=== PATIENT | male | born 1955 | race Caucasian/White ===

== ENCOUNTER 2021-12-25 14:31 | Outpatient (AMB) | payer OTHER, SELFPAY ==
--- NOTE | 2021-12-25 14:31 | A.OFFVIS_ITS ---
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 He is a patient of Dr. Andujar. He seen for the following urologic conditions - prostate cancer Recent diagnosis prostate cancer Recommend MRI with repeat PSA Could also obtain genetics Prostate cancer - favorable intermediate, low volume, clinically localized 06/2021 Diagnosed [address] Mccormack in [place] Initial PSA 12 Biopsy to calls out of 12 each less than 20% with [place] 3 + 3 Total size 50 g PFSH Medical History Elevated cholesterol HTN (hypertension) Surgical History Hx of hand surgery Hx of right inguinal hernia repair Social History Patient Tobacco Use Status: Never used Tobacco Review of Systems Const Denies chills and Denies fever(s) Card Reports no additional complaints and Denies syncope Resp Denies cough GI Denies abdominal pain and Denies heartburn Reports as per HPI and Denies change in libido Neuro Denies syncope Psych Denies change in libido Endo Denies change in libido Physical Exam Vital Signs: Last Vital Signs Pulse 79 12/25/21 14:43 Resp 18 12/25/21 14:43 BP 150/80 H 12/25/21 14:43 BMI result Body Mass Index 27.2 Const General: cooperative, healthy appearing, comfortable and no acute distress Orientation/consciousness: patient oriented x3 HEENT Face and sinus: Yes normal facial exam Mouth: moist mucous membranes Neck Neck: Yes normal visual inspection, Yes full ROM and Yes trachea midline Chest Chest palpation & inspection: normal inspection of the chest Resp Effort & Inspection: normal respiratory effort, able to speak in complete sentences and no respiratory distress GI Inspection: Yes normal to inspection Back/Spine/Pelvis Cervical Spine: normal cervical lordosis Thoracic/Lumbar Spine: thoracic and lumbar spine normal to inspection Skin General skin exam: no rashes or lesions noted Neuro General: patient oriented x3, gait normal, tone normal and moves all extremities Extrem General: Yes normal to inspection and Yes capillary refill normal Assessment & Plan Assessment & Plan (1) Prostate cancer: Comment: June 2021 biopsy 2 of 12 cores positive less than 20% [place] 3+3 - PSA 12 Code(s): C61 - Malignant neoplasm of prostate Plan Prostate MRI Prolaris genetics Orders: Orders Creatinine 12/25/21 R39.15 - Urgency of urination, C61 - Malignant neoplasm of prostate MR pelvis wo/w con 12/25/21 C61 - Malignant neoplasm of prostate Blood Urea Nitrogen 12/25/21 R39.15 - Urgency of urination, C61 - Malignant neoplasm of prostate Patient Instructions: Imaging studies, laboratory and physical exam results were discussed and reviewed in detail. No major barriers to patient understanding were identified. An opportunity to ask questions regarding the treatment plan was provided. All questions were answered. The patient expressed understanding and agreement with the above treatment plan. The patient is aware they should contact our office by phone for worsening of their current condition or the appearance of new urologic symptoms. Compliance is encouraged with any medications and followup testing that is ordered. It is a privilege to participate in the urologic care of your patient. If you have any questions or concerns regarding treatment for the above conditions, or other urologic issues, please do not hesitate to contact me. The office telephone contact is [phone]. This note is constructed using voice recognition software. While every effort has been made to ensure accuracy rn urology errors may have been included. Yours sincerely, Dr Easton Chance MD, [place] [facility] - Urology Providers of Expert, Compassionate Care for the Genitourinary System Coding Level of Care Code New Pt Level 4 (24718) Diagnoses Prostate cancer C61
[2021-12-25 14:43] VITALS: BP 150/80; PULSE 79; RESP 18; BMI 27.2
== END 2021-12-25 15:14 | disposition home or self-care (01) ==
LOC: HO.HUSH 14:31
PROVIDERS: Visit Provider Urology
DX: C61 Malignant neoplasm of prostate (principal)
CPT/HCPCS: 99499

== ENCOUNTER → 2022-05-11 14:31 | Outpatient (BNVA) | payer MEDICARE, SELFPAY | PROVIDERS: Visit Provider Urology | DX: C61 Malignant neoplasm of prostate (principal) | CPT/HCPCS: Q3014 ==

== ENCOUNTER → 2022-09-08 13:32 | Outpatient (BNVA) | payer MEDICARE, SELFPAY | PROVIDERS: PCP Family Medicine; Visit Provider Urology | DX: C61 Malignant neoplasm of prostate (principal) | CPT/HCPCS: Q3014 ==

== ENCOUNTER 2022-11-08 10:21 | Day surgery (SDC) | payer MEDICARE, SELFPAY ==
[2022-11-04 11:14] VITALS: BMI 27.2
--- NOTE | 2022-11-08 08:13 | HO.ANESPROP2 ---
[facility] Active Problems Active Problems: All Active Problems (Updated 11/04/22 @ 11:09 by Lachelle Moran RN) Prostate cancer (Acute) Past Medical History Medical History (Updated 11/08/22 @ 11:14 by Farzana Choi, RADHA) Elevated cholesterol HTN (hypertension) Family History Family history of problems with anesthesia: No Surgical History Surgical History (Updated 11/08/22 @ 10:48 by Farzana Choi, RADHA) Hx of hand surgery Hx of right inguinal hernia repair History of Problems with Anesthesia: No Social History Social History Patient Tobacco Use Status: Never used Tobacco Use of substances other than those prescribed or required for medical reasons: No Advance Directives Information Provided: Yes Advance Directives on File: No Meds Allergies Allergy/AdvReac Type Severity Reaction Status Date / Time midazolam [From Versed] AdvReac Nausea Verified 11/08/22 10:48 morphine AdvReac Nausea and Verified 11/08/22 10:49 Vomiting Exam Exam Date and Time: November 08, 2022 0813 Height,Weight and Vital Signs: Height 5 ft 7 in Weight 78.925 kg Airway Mallampati Class: II (top 8 caps implant) TM Dist: >3cm Neck ROM: Full Heart: rrr Lungs: cta Assessment and Plan Assessment Anesthesia Assessment: Anesthesia Plan Discussed and Chart Reviewed Final Anesthetic Review Family History of Problems with Anesthesia: No History of Problems with Anesthesia: No NPO: Yes ASA Class: II Final Preanesthetic Review: No Changes in Pt Med Stat, Meds/Allgs Chart Reviewed and Consent Obtained/Reviewed Patient Risk: Intermediate Procedure Risk: Intermediate Anesthetic Plan Anesthetic Plan: GA Disposition: Standard PACU
[2022-11-08 10:55] VITALS: BP 164/102; PULSE 59; RESP 15; TEMP 36.8; O2SAT 99
[2022-11-08] MEDS: Lactated Ringers 1,000 ML 50 ML IVCONT (11:14)
--- NOTE | 2022-11-08 12:51 | MHC.SHP ---
Pre-Procedural Eval Section A Date of Service: 11/08/22 The patient is an INPATIENT: No Changes since office visit: No Cold of Flu in the past 2 weeks, No New Medical Problems, No Changes in Medication and No Patient answered all questions The History & Physical has been completed within 30 days and I have reviewed it.: Yes Section B Chief Complaint: prostate cancer Relevant Social History: None Present Medications: see Short Stay Collaborative assessment Medical History: No relevant PMH History of Previous Operations: No relevant previous surgery Allergies: Allergies Allergy/AdvReac Type Severity Reaction Status Date / Time midazolam [From Versed] AdvReac Nausea Verified 11/08/22 10:48 morphine AdvReac Nausea and Verified 11/08/22 10:49 Vomiting Review of Systems Sugical H&P ROS: Negative: Constitution, Cardiovascular, Respiratory, Neurological, Psychiatric, Hem-Onc, Allergic/Immunologic, Gastrointestinal, Genitourinary, Musculoskeletal, Integumentary, Endocrine and Eyes/Ears/Nose/Throat Exam Surgical H&P Exam: Normal: HEENT, Normal: Heart, Normal: Lungs, Normal: Extremities, Normal: Abdomen, Normal: Skin and Normal: Neurological Plan Diagnosis/Plan: Unchanged (prostate cancer targeted therapy) I have reviewed the history and physical and performed a pertinent physical examination on my patient. No changes have occurred unless specified. Time Spent With Patient Time: Total time managing care of this patient today ____ minutes.
[2022-11-08 14:00] VITALS: BP 135/84; PULSE 66; RESP 16; TEMP 36.2; O2SAT 96
--- NOTE | 2022-11-08 14:01 | W.PM.OPN ---
Operative Note Operative Note Date of Service: 11/08/22 Narrative: Preoperative diagnosis: Prostate Cancer Postoperative diagnosis: Prostate Cancer Procedure: 1. transrectal ultrasound measurement of prostate 2. transrectal ultrasound-guided pudendal nerve block 3. MRI-US fusion image registration performed 3. transperineal ultrasound-guided prostate biopsy 17 core including targets Surgeon: Dr. Easton Chance Anesthetic: Sedation plus local Indications for procedure: Prostate Cancer Procedure: After informed consent was verified, the patient was brought into the procedure area. Patient identity confirmed. Perioperative antibiotics confirmed. Safety pause time out performed. Anesthesia performed per protocol Ultrasound probe was placed per rectum Focalis software and hardware platform used An ultrasound-guided pudendal nerve block was performed using 10 cc of 1% lidocaine. 8 cc was placed at the base and 2 cc of the apex. Perineal injection of local. Ultrasound placement was made with grid calibration for height and prostate diameter in both the transverse and longitudinal planes. Once grid calibration was confirmed ultrasound acquisition was performed in the transverse fashion. Three dimensional ultrasound model was created. The planned needle targeting based on prior acquisition of MRI imaging was overlaid on the ultrasound images and targets confirmed through ultrasound review. Based on pre -planning evaluation 17 targets had been identified. These included 1 target Pirads 3 and 1 target pirads 4 identified lesion/s. He tolerated the procedure well. Was transferred to stable condition in the PACU. Printed instructions regarding antibiotic use and common side effects such as low-grade temperature, potential infection and bleeding were given Pathology: 17 cores prostate biopsy CPT 28143 Modifier 22 for complexity of planning and procedure execution
[2022-11-08 14:05] VITALS: BP 121/53; PULSE 63; RESP 16; O2SAT 98
[2022-11-08 14:10] VITALS: BP 133/88; PULSE 61; RESP 16; O2SAT 99
[2022-11-08 14:15] VITALS: BP 139/93; PULSE 65; RESP 16; O2SAT 99
[2022-11-08 14:30] VITALS: BP 128/86; PULSE 60; RESP 16; TEMP 36.5; O2SAT 99
== END 2022-11-08 15:22 | disposition home or self-care (01) ==
PROVIDERS: PCP Family Medicine; Visit Provider Urology
PROC: (CPT 55700; principal; 2022-11-08 12:10)
DX: C61 Malignant neoplasm of prostate (principal); R97.20 Elevated prostate specific antigen [PSA]; I10 Essential (primary) hypertension; E78.00 Pure hypercholesterolemia, unspecified; Z79.899 Other long term (current) drug therapy; Z88.8 Allergy status to other drugs, medicaments and biological substances
CPT/HCPCS: 55700; 88305; 88344; J1956; J2405; J3010

== ENCOUNTER → 2022-11-16 12:56 | Outpatient (BNVA) | payer MEDICARE, SELFPAY | PROVIDERS: PCP Family Medicine; Visit Provider Urology ==

== ENCOUNTER → 2022-11-24 12:49 | Outpatient (BNVA) | payer MEDICARE, SELFPAY | PROVIDERS: PCP Family Medicine; Visit Provider Urology | DX: C61 Malignant neoplasm of prostate (principal) | CPT/HCPCS: Q3014 ==

== ENCOUNTER 2023-08-25 13:46 | Outpatient (AMB) | payer MEDICARE, SELFPAY ==
--- NOTE | 2023-08-25 13:48 | A.OFFVIS_ITS ---
Intake Intake Visit Reasons: follow up per Dr. Chance Intake Note: Patient is Present for Telephone Follow Up For Urology Med: Finasteride Antibiotic Allergy: None Blood Thinner: None Allergies midazolam [From Versed] Adverse Reaction (Verified 08/25/23 13:50) Nausea morphine Adverse Reaction (Verified 08/25/23 13:50) Nausea and Vomiting HPI HPI Comments History of Present Illness Details Sergio is very pleasant male. He is a patient of Dr. Andujar. He seen for the following urologic conditions - prostate cancer Telemedicine Evaluation 15 min Consultation [employer] Video attempted Discussed options for therapy including robotic prostatectomy, external beam radiation, targeted focal cryotherapy Is active and values urinary control on current erectile function This was why he initially chose surveillance in 2021 Would like to move ahead with focal therapy Risks and benefits were discussed including continence and erectile issues 11/09 Biopsy Histologic type: Adenocarcinoma; acinar type ? [place] score: 3+4=7 (c 3.5, D 4.0; c 4.0) - % of pattern 4: 15% of the tumor 3+3=6 (d 3.5; d 3.0) Tumor quantitation: Number cores positive: 5 Total number of cores: 19 % of tissue involved: 10% of all tissue examined Prostate cancer - favorable intermediate, low volume, clinically localized 06/2021 Diagnosed June [address] Mccormack in [place] Initial PSA 12 PSA - 04/10 19, 09/09 14 07/11 Biopsy Biopsy 2 out of 12 cores each less than 20% with [place] 3 + 3 Imaging - 12/09 MRI left lateral peripheral zone wedge shaped PI-RADS 3 Total size 50 g Prolaris 01/08 - Borderline active surveillance/single therapy PFSH Medical History Elevated cholesterol HTN (hypertension) Surgical History Hx of right inguinal hernia repair Hx of hand surgery Social History Patient Tobacco Use Status: Never used Tobacco Review of Systems Const All systems reviewed & are unremarkable except as noted in HPI and below Reports no additional complaints Resp Reports no additional complaints GI Reports no additional complaints Reports as per HPI Musc Reports no additional complaints Physical Exam Telemedicine evaluation Appropriate responses Regular breathing rate and rhythm HEENT Head: Yes normal to inspection Ears: hearing grossly normal bilaterally Eyes General: appearance normal, both eyes and all related structures Neck Neck: Yes normal visual inspection Chest Chest palpation & inspection: normal inspection of the chest Resp Effort & Inspection: normal respiratory effort and able to speak in complete sentences Assessment & Plan Assessment & Plan (1) Prostate cancer: Comment: June 2021 biopsy 2 of 12 cores positive less than 20% [place] 3+3 - PSA 12 Code(s): C61 - Malignant neoplasm of prostate Plan Risks, benefits and alternatives to therapy were discussed. These include but are not limited to infection, bleeding, damage to local organs and tissues, need for further interventions. Anesthetic risks regarding cardiac arrhythmia, blood clots, and potential mortality were discussed. The patient understands the typical recovery time and the outpatient nature of the procedure. After consideration of these risks the patient gives full informed consent and they wish to move ahead with the procedure. Focal Cryotherapy Prostate Orders: Orders PSA,Total (Free>4and<10) Today C61 - Malignant neoplasm of prostate Patient Instructions: Imaging studies, laboratory and physical exam results were discussed and reviewed in detail. No major barriers to patient understanding were identified. An opportunity to ask questions regarding the treatment plan was provided. All questions were answered. The patient expressed understanding and agreement with the above treatment plan. The patient is aware they should contact our office by phone for worsening of their current condition or the appearance of new urologic symptoms. Compliance is encouraged with any medications and followup testing that is ordered. It is a privilege to participate in the urologic care of your patient. If you have any questions or concerns regarding treatment for the above conditions, or other urologic issues, please do not hesitate to contact me. The office telephone contact is [phone]. This note is constructed using voice recognition software. While every effort has been made to ensure accuracy mirror finishing machine operator errors may have been included. Yours sincerely, Dr Easton Chance MD, [place] [facility] - Urology Providers of Expert, Compassionate Care for the Genitourinary System Telehealth Telehealth Location of provider rendering services: practice address Location of patient: address on file Patient Identification confirmed using: Name, : Yes Telehealth method: video Patient verbally consented to treatment: Yes Patient verbally consented to billing insurance company: Yes Patient informed of any privacy concerns related to visit: Yes Coding Level of Care Code Tele Est Pt Level 4 (15266) Diagnoses Prostate cancer C61
== END 2023-08-25 14:35 | disposition home or self-care (01) ==
LOC: HO.HUSH 13:46
PROVIDERS: PCP Family Medicine; Visit Provider Urology
DX: C61 Malignant neoplasm of prostate (principal)
CPT/HCPCS: 99213

== ENCOUNTER → 2023-08-25 13:46 | Outpatient (BNVA) | payer MEDICARE, SELFPAY | PROVIDERS: PCP Family Medicine; Visit Provider Urology ==

== ENCOUNTER 2023-09-30 11:55 | Outpatient (AMB) | payer MEDICARE, SELFPAY ==
--- NOTE | 2023-09-30 11:56 | MHC.OFFVIS ---
Intake Intake Visit Reasons: PSA results(set) Allergies midazolam [From Versed] Adverse Reaction (Verified 08/25/23 13:50) Nausea morphine Adverse Reaction (Verified 08/25/23 13:50) Nausea and Vomiting HPI HPI Comments History of Present Illness Details Sergio is very pleasant male. He is a patient of Dr. Andujar. He seen for the following urologic conditions - prostate cancer Telemedicine Evaluation 15 min Consultation [employer] Video Discussed options for therapy including robotic prostatectomy, external beam radiation, targeted focal cryotherapy Is active and values urinary control on current erectile function This was why he initially chose surveillance in 2021 Would like to move ahead with focal therapy Risks and benefits were discussed including continence and erectile issues PSA had fallen with finasteride - had side effects so came off medication 11/09 Biopsy Histologic type: Adenocarcinoma; acinar type ? [place] score: 3+4=7 (c 3.5, D 4.0; c 4.0) - % of pattern 4: 15% of the tumor 3+3=6 (d 3.5; d 3.0) Tumor quantitation: Number cores positive: 5 Total number of cores: 19 % of tissue involved: 10% of all tissue examined Prostate cancer - favorable intermediate, low volume, clinically localized 06/2021 Diagnosed June [address] Mccormack in [place] Initial PSA 12 PSA - 04/10 19, 09/09 14 07/11 Biopsy Biopsy 2 out of 12 cores each less than 20% with [place] 3 + 3 Imaging - 12/09 MRI left lateral peripheral zone wedge shaped PI-RADS 3 Total size 50 g Prolaris 01/08 - Borderline active surveillance/single therapy PFSH Medical History Elevated cholesterol HTN (hypertension) Surgical History Hx of right inguinal hernia repair Hx of hand surgery Social History Patient Tobacco Use Status: Never used Tobacco Assessment & Plan Assessment & Plan (1) Prostate cancer: Comment: June 2021 biopsy 2 of 12 cores positive less than 20% [place] 3+3 - PSA 12 Code(s): C61 - Malignant neoplasm of prostate Plan Risks, benefits and alternatives to therapy were discussed. These include but are not limited to infection, bleeding, damage to local organs and tissues, need for further interventions. Anesthetic risks regarding cardiac arrhythmia, blood clots, and potential mortality were discussed. The patient understands the typical recovery time and the outpatient nature of the procedure. After consideration of these risks the patient gives full informed consent and they wish to move ahead with the procedure. Focal Prostate Cryotherapy Patient Instructions: Imaging studies, laboratory and physical exam results were discussed and reviewed in detail. No major barriers to patient understanding were identified. An opportunity to ask questions regarding the treatment plan was provided. All questions were answered. The patient expressed understanding and agreement with the above treatment plan. The patient is aware they should contact our office by phone for worsening of their current condition or the appearance of new urologic symptoms. Compliance is encouraged with any medications and followup testing that is ordered. It is a privilege to participate in the urologic care of your patient. If you have any questions or concerns regarding treatment for the above conditions, or other urologic issues, please do not hesitate to contact me. The office telephone contact is [phone]. This note is constructed using voice recognition software. While every effort has been made to ensure accuracy medical registrar errors may have been included. Yours sincerely, Dr Easton Chance MD, [place] [facility] - Urology Providers of Expert, Compassionate Care for the Genitourinary System Telehealth Telehealth Location of provider rendering services: practice address Location of patient: address on file Patient Identification confirmed using: Name, : Yes Telehealth method: video Patient verbally consented to treatment: Yes Patient verbally consented to billing insurance company: Yes Patient informed of any privacy concerns related to visit: Yes Coding Level of Care Code Tele Est Pt Level 4 (06363) Diagnoses Prostate cancer C61
== END 2023-09-30 12:38 | disposition home or self-care (01) ==
LOC: HO.HUSH 11:55
PROVIDERS: PCP Family Medicine; Visit Provider Urology
DX: C61 Malignant neoplasm of prostate (principal)
CPT/HCPCS: 99214

== ENCOUNTER → 2023-09-30 11:55 | Outpatient (BNVA) | payer MEDICARE, SELFPAY | PROVIDERS: PCP Family Medicine; Visit Provider Urology ==

== ENCOUNTER 2024-01-05 12:10 | Outpatient (AMB) | payer MEDICARE, SELFPAY ==
--- NOTE | 2024-01-05 11:57 | MHC.OFFVIS ---
Intake Visit Reasons: H&P Prostate Cryo Intake Note: Patient is Present for H&P PROSTATE CRYO Urology Med: Finasteride Antibiotic Allergy: None Blood Thinner: None Personnel And Payroll Technician Required: No Allergies midazolam [From Versed] Adverse Reaction (Verified 01/05/24 11:58) Nausea morphine Adverse Reaction (Verified 01/05/24 11:58) Nausea and Vomiting Medication List - Last Reconciled 01/05/24 by Easton Chance MD finasteride 5 mg PO DAILY 90 days HPI Comments Details: Sergio is very pleasant male. He is a patient of Dr. Andujar. He seen for the following urologic conditions - prostate cancer Telemedicine Evaluation 15 min Consultation [employer] Video Planning for cryotherapy Discussed options for therapy including robotic prostatectomy, external beam radiation, targeted focal cryotherapy Is active and values urinary control on current erectile function This was why he initially chose surveillance in 2021 Would like to move ahead with focal therapy Risks and benefits were discussed including continence and erectile issues PSA had fallen with finasteride - had side effects so came off medication 11/09 Biopsy Histologic type: Adenocarcinoma; acinar type ? [place] score: 3+4=7 (c 3.5, D 4.0; c 4.0) - % of pattern 4: 15% of the tumor 3+3=6 (d 3.5; d 3.0) Tumor quantitation: Number cores positive: 5 Total number of cores: 19 % of tissue involved: 10% of all tissue examined Prostate cancer - favorable intermediate, low volume, clinically localized 06/2021 Diagnosed June [address] Mccormack in [place] Initial PSA 12 PSA - 04/10 19, 09/09 14 07/11 Biopsy Biopsy 2 out of 12 cores each less than 20% with [place] 3 + 3 Imaging - 12/09 MRI left lateral peripheral zone wedge shaped PI-RADS 3 Total size 50 g Prolaris 01/08 - Borderline active surveillance/single therapy PFSH Medical History Elevated cholesterol HTN (hypertension) Surgical History Hx of right inguinal hernia repair Hx of hand surgery Social History Patient Tobacco Use Status: Never used Tobacco Review of Systems Const All systems reviewed & are unremarkable except as noted in HPI and below Reports no additional complaints Resp Reports no additional complaints GI Reports no additional complaints Reports as per HPI Musc Reports no additional complaints Physical Exam Telemedicine evaluation Appropriate responses Regular breathing rate and rhythm HEENT Head: Yes normal to inspection Ears: hearing grossly normal bilaterally Eyes General: appearance normal, both eyes and all related structures Neck Neck: Yes normal visual inspection Chest Chest palpation & inspection: normal inspection of the chest Resp Effort & Inspection: normal respiratory effort and able to speak in complete sentences Telehealth Telehealth Location of provider rendering services: practice address Location of patient: address on file Patient Identification confirmed using: Name, : Yes Telehealth method: voice only Patient verbally consented to treatment: Yes Patient verbally consented to billing insurance company: Yes Patient informed of any privacy concerns related to visit: Yes Assessment & Plan Assessment & Plan (1) Prostate cancer: Comment: June 2021 biopsy 2 of 12 cores positive less than 20% [place] 3+3 - PSA 12 Code(s): C61 - Malignant neoplasm of prostate Category: Medical Plan Risks, benefits and alternatives to therapy were discussed. These include but are not limited to infection, bleeding, damage to local organs and tissues, need for further interventions. Anesthetic risks regarding cardiac arrhythmia, blood clots, and potential mortality were discussed. The patient understands the typical recovery time and the outpatient nature of the procedure. After consideration of these risks the patient gives full informed consent and they wish to move ahead with the procedure. Cryotherapy prostate Orders: Orders MR pelvis wo/w con 01/05/24 C61 - Malignant neoplasm of prostate Patient Instructions: Imaging studies, laboratory and physical exam results were discussed and reviewed in detail. No major barriers to patient understanding were identified. An opportunity to ask questions regarding the treatment plan was provided. All questions were answered. The patient expressed understanding and agreement with the above treatment plan. The patient is aware they should contact our office by phone for worsening of their current condition or the appearance of new urologic symptoms. Compliance is encouraged with any medications and followup testing that is ordered. It is a privilege to participate in the urologic care of your patient. If you have any questions or concerns regarding treatment for the above conditions, or other urologic issues, please do not hesitate to contact me. The office telephone contact is [phone]. This note is constructed using voice recognition software. While every effort has been made to ensure accuracy senior process engineer errors may have been included. Yours sincerely, Dr Easton Chance MD, [place] [facility] - Urology Providers of Expert, Compassionate Care for the Genitourinary System Coding Level of Care Code Tele Est Pt Level 3 (08285) Diagnoses Prostate cancer C61
== END 2024-01-05 14:00 | disposition home or self-care (01) ==
LOC: HO.HUSH 12:10
PROVIDERS: PCP Family Medicine; Visit Provider Urology
DX: C61 Malignant neoplasm of prostate (principal)
CPT/HCPCS: 99442

== ENCOUNTER → 2024-01-05 12:10 | Outpatient (BNVA) | payer MEDICARE, SELFPAY | PROVIDERS: PCP Family Medicine; Visit Provider Urology ==

== ENCOUNTER 2024-03-29 14:42 | Outpatient (AMB) | payer MEDICARE, SELFPAY ==
--- NOTE | 2024-03-29 14:43 | A.OFFVIS_ITS ---
Intake Visit Reasons: Discuss plan after surgical denial Intake Note: Patient is present for Telephone to discuss plan of care after Surgical denial Allergies midazolam [From Versed] Adverse Reaction (Verified 01/05/24 11:58) Nausea morphine Adverse Reaction (Verified 01/05/24 11:58) Nausea and Vomiting Medication List - Last Reconciled 03/29/24 by Easton Chance MD finasteride 5 mg PO DAILY 90 days HPI Comments Details: Sergio is very pleasant male. He is a patient of Dr. Andujar. He seen for the following urologic conditions - prostate cancer Telemedicine Evaluation 15 min Consultation [employer] Syed Video Targeted focal therapy denied He is interested in potential paying [id number] Was also interested in brachytherapy Will put in referral for brachytherapy assessment MRI 02/10 1.3cm PiRADS 4 lesion left lateral zone - similar to 2021 PSA had fallen with finasteride - had side effects so came off medication 11/09 Biopsy Histologic type: Adenocarcinoma; acinar type ? [place] score: 3+4=7 (c 3.5, D 4.0; c 4.0) - % of pattern 4: 15% of the tumor 3+3=6 (d 3.5; d 3.0) Tumor quantitation: Number cores positive: 5 Total number of cores: 19 % of tissue involved: 10% of all tissue examined Prostate cancer - favorable intermediate, low volume, clinically localized 06/2021 Diagnosed [address] Mccormack in [place] Initial PSA 12 PSA - 04/10 19, 09/09 14 07/11 Biopsy Biopsy 2 out of 12 cores each less than 20% with [place] 3 + 3 Imaging - 12/09 MRI left lateral peripheral zone wedge shaped PI-RADS 3 Total size 50 g Prolaris 01/08 - Borderline active surveillance/single therapy PFSH Medical History Elevated cholesterol HTN (hypertension) Surgical History Hx of right inguinal hernia repair Hx of hand surgery Social History Patient Tobacco Use Status: Never used Tobacco Review of Systems Const All systems reviewed & are unremarkable except as noted in HPI and below Reports no additional complaints Resp Reports no additional complaints GI Reports no additional complaints Reports as per HPI [facility] [place] no additional complaints Physical Exam Telemedicine evaluation Appropriate responses Regular breathing rate and rhythm HEENT Head: Yes normal to inspection Ears: hearing grossly normal bilaterally Eyes General: appearance normal, both eyes and all related structures Neck Neck: Yes normal visual inspection Chest Chest palpation & inspection: normal inspection of the chest Resp Effort & Inspection: normal respiratory effort and able to speak in complete sentences Telehealth Telehealth Telehealth Platform: [employer] Location of provider rendering services: practice address Location of patient: address on file Patient Identification confirmed using: Name, : Yes Telehealth method: video Patient verbally consented to treatment: Yes Patient verbally consented to billing insurance company: Yes Patient informed of any privacy concerns related to visit: Yes Minutes spent on Phone/Video with Pt.: 15 Assessment & Plan Assessment & Plan (1) Prostate cancer: Comment: June 2021 biopsy 2 of 12 cores positive less than 20% [place] 3+3 - PSA 12 Code(s): C61 - Malignant neoplasm of prostate Category: Medical Plan Discussion for brachytherapy Will find cost of cryotherapy Orders: Referrals Radiation Oncology Referral C61 - Malignant neoplasm of prostate Patient Instructions: Imaging studies, laboratory and physical exam results were discussed and reviewed in detail. No major barriers to patient understanding were identified. An opportunity to ask questions regarding the treatment plan was provided. All questions were answered. The patient expressed understanding and agreement with the above treatment plan. The patient is aware they should contact our office by phone for worsening of their current condition or the appearance of new urologic symptoms. Compliance is encouraged with any medications and followup testing that is ordered. It is a privilege to participate in the urologic care of your patient. If you have any questions or concerns regarding treatment for the above conditions, or other urologic issues, please do not hesitate to contact me. The office telephone contact is [phone]. This note is constructed using voice recognition software. While every effort has been made to ensure accuracy silver chaser errors may have been included. Yours sincerely, Dr Easton Chance MD, [facility] - Urology Providers of Expert, Compassionate Care for the Genitourinary System Coding Level of Care Code Tele Est Pt Level 3 (70533) Diagnoses Prostate cancer C61
== END 2024-03-29 15:18 | disposition home or self-care (01) ==
LOC: HO.HUSH 14:42
PROVIDERS: PCP Family Medicine; Visit Provider Urology
DX: C61 Malignant neoplasm of prostate (principal)
CPT/HCPCS: 99213

== ENCOUNTER → 2024-03-29 14:42 | Outpatient (BNVA) | payer MEDICARE, SELFPAY | PROVIDERS: PCP Family Medicine; Visit Provider Urology ==

== ENCOUNTER 2024-05-04 09:36 | Outpatient (AMB) | payer MEDICARE, SELFPAY ==
--- NOTE | 2024-05-04 09:37 | MHC.OFFVIS ---
Intake Visit Reasons: Radiation Onc follow up Intake Note: Patient is present for Telephone Follow up Urology Med: Finasteride (Patient states he is no longer taking Finasteride) Antibiotic Allergy: None Blood Thinner: None Dialysis Biomed Technician Required: No Accompanied by: Self / Same As Patient Allergies midazolam [From Versed] Adverse Reaction (Verified 05/04/24 09:38) Nausea morphine Adverse Reaction (Verified 05/04/24 09:38) Nausea and Vomiting HPI Comments Details: Sergio is very pleasant male. He is a patient of Dr. Andujar. He seen for the following urologic conditions - prostate cancer Telemedicine Evaluation 15 min Consultation [employer] Syed Video Targeted focal therapy cost estimate 15-20K dollars Will put in referral for brachytherapy assessment MRI 02/10 1.3cm PiRADS 4 lesion left lateral zone - similar to 2021 PSA had fallen with finasteride - had side effects so came off medication 11/09 Biopsy Histologic type: Adenocarcinoma; acinar type ? [place] score: 3+4=7 (c 3.5, D 4.0; c 4.0) - % of pattern 4: 15% of the tumor 3+3=6 (d 3.5; d 3.0) Tumor quantitation: Number cores positive: 5 Total number of cores: 19 % of tissue involved: 10% of all tissue examined Prostate cancer - favorable intermediate, low volume, clinically localized 06/2021 Diagnosed June [address] Mccormack in [place] Initial PSA 12 PSA - 04/10 19, 09/09 14 07/11 Biopsy Biopsy 2 out of 12 cores each less than 20% with [place] 3 + 3 Imaging - 12/09 MRI left lateral peripheral zone wedge shaped PI-RADS 3 Total size 50 g Prolaris 01/08 - Borderline active surveillance/single therapy PFSH Medical History Elevated cholesterol HTN (hypertension) Surgical History Hx of right inguinal hernia repair Hx of hand surgery Social History Patient Tobacco Use Status: Never used Tobacco Review of Systems Const All systems reviewed & are unremarkable except as noted in HPI and below Reports no additional complaints Resp Reports no additional complaints GI Reports no additional complaints Reports as per HPI Musc Reports no additional complaints Physical Exam Telemedicine evaluation Appropriate responses Regular breathing rate and rhythm HEENT Head: Yes normal to inspection Ears: hearing grossly normal bilaterally Eyes General: appearance normal, both eyes and all related structures Neck Neck: Yes normal visual inspection Chest Chest palpation & inspection: normal inspection of the chest Resp Effort & Inspection: normal respiratory effort and able to speak in complete sentences Telehealth Telehealth Telehealth Platform: [employer] Location of provider rendering services: practice address Location of patient: address on file Patient Identification confirmed using: Name, : Yes Telehealth method: video Patient verbally consented to treatment: Yes Patient verbally consented to billing insurance company: Yes Patient informed of any privacy concerns related to visit: Yes Minutes spent on Phone/Video with Pt.: 15 Assessment & Plan Assessment & Plan (1) Prostate cancer: Comment: June 2021 biopsy 2 of 12 cores positive less than 20% [place] 3+3 - PSA 12 Code(s): C61 - Malignant neoplasm of prostate Category: Medical Plan Brachytherapy referral Four week follow-up Orders: Referrals Radiation Oncology Referral C61 - Malignant neoplasm of prostate Patient Instructions: Imaging studies, laboratory and physical exam results were discussed and reviewed in detail. No major barriers to patient understanding were identified. An opportunity to ask questions regarding the treatment plan was provided. All questions were answered. The patient expressed understanding and agreement with the above treatment plan. The patient is aware they should contact our office by phone for worsening of their current condition or the appearance of new urologic symptoms. Compliance is encouraged with any medications and followup testing that is ordered. It is a privilege to participate in the urologic care of your patient. If you have any questions or concerns regarding treatment for the above conditions, or other urologic issues, please do not hesitate to contact me. The office telephone contact is [phone]. This note is constructed using voice recognition software. While every effort has been made to ensure accuracy hat renovator errors may have been included. Yours sincerely, Dr Easton Chance MD, [facility] - Urology Providers of Expert, Compassionate Care for the Genitourinary System Coding Level of Care Code Tele Est Pt Level 4 (77240) Diagnoses Prostate cancer C61
== END 2024-05-04 10:40 | disposition home or self-care (01) ==
LOC: HO.HUSH 09:36
PROVIDERS: PCP Family Medicine; Visit Provider Urology
DX: C61 Malignant neoplasm of prostate (principal)
CPT/HCPCS: 99214

== ENCOUNTER → 2024-05-04 09:36 | Outpatient (BNVA) | payer MEDICARE, SELFPAY | PROVIDERS: PCP Family Medicine; Visit Provider Urology ==

== ENCOUNTER → 2024-08-03 08:45 | Outpatient (BNVA) | payer MEDICARE, OTHER, SELFPAY | PROVIDERS: PCP Family Medicine; Visit Provider Urology ==

== ENCOUNTER 2024-08-09 08:59 | Outpatient (AMB) | payer MEDICARE, OTHER, SELFPAY ==
--- NOTE | 2024-08-09 09:00 | MHC.OFFVIS ---
Intake Visit Reasons: r/s telehealth cryo therapy vs radiation Intake Note: Patient is present for CRYO THERAPY VS RADIATION Urology Medication:NONE Antibiotic Allergy:NONE Blood Thinner:NONE Plywood Patcher Required: No Allergies midazolam [From Versed] Adverse Reaction (Verified 08/09/24 09:00) Nausea morphine Adverse Reaction (Verified 08/09/24 09:00) Nausea and Vomiting HPI Comments Details: Sergio is very pleasant male. He is a patient of Dr. Andujar. He seen for the following urologic conditions - prostate cancer Telemedicine Evaluation 15 min Consultation [employer] Syed Video Recent insurance change Did review case with Dr. Karimi at [facility]. He would need to brachytherapy for [place] 3 + [address] Rollins at [facility] - he suggested Dr. Llanes at [facility] Will look at referral Will also try for prior authorization for targeted cryotherapy Targeted focal therapy cost estimate 15-20K dollars MRI 02/10 1.3cm PiRADS 4 lesion left lateral zone - similar to 2021 PSA had fallen with finasteride - had side effects so came off medication 11/09 Biopsy Histologic type: Adenocarcinoma; acinar type [place] score: 3+4=7 (c 3.5, D 4.0; c 4.0) - % of pattern 4: 15% of the tumor 3+3=6 (d 3.5; d 3.0) Tumor quantitation: Number cores positive: 5 Total number of cores: 19 % of tissue involved: 10% of all tissue examined Prostate cancer - favorable intermediate, low volume, clinically localized 06/2021 Diagnosed June [address] Mccormack in [place] Initial PSA 12 PSA - 04/10 19, 09/09 14 07/11 Biopsy - Biopsy 2 out of 12 cores each less than 20% with [place] 3 + 3 Imaging - 12/09 MRI left lateral peripheral zone wedge shaped PI-RADS 3 Total size 50 g Prolaris 01/08 - Borderline active surveillance/single therapy PFSH Medical History Elevated cholesterol HTN (hypertension) Surgical History Hx of right inguinal hernia repair Hx of hand surgery Social History Patient Tobacco Use Status: Never used Tobacco Review of Systems Const All systems reviewed & are unremarkable except as noted in HPI and below Reports no additional complaints Resp Reports no additional complaints GI Reports no additional complaints Reports as per HPI Musc Reports no additional complaints Physical Exam Telemedicine evaluation Appropriate responses Regular breathing rate and rhythm HEENT Head: Yes normal to inspection Ears: hearing grossly normal bilaterally Eyes General: appearance normal, both eyes and all related structures Neck Neck: Yes normal visual inspection Chest Chest palpation & inspection: normal inspection of the chest Resp Effort & Inspection: normal respiratory effort and able to speak in complete sentences Telehealth Telehealth Telehealth Platform: [employer] Location of provider rendering services: practice address Location of patient: address on file Patient Identification confirmed using: Name, : Yes Telehealth method: video Patient verbally consented to treatment: Yes Patient verbally consented to billing insurance company: Yes Patient informed of any privacy concerns related to visit: Yes Minutes spent on Phone/Video with Pt.: 15 Assessment & Plan Assessment & Plan (1) Prostate cancer: Comment: June 2021 biopsy 2 of 12 cores positive less than 20% [place] 3+3 - PSA 12 Code(s): C61 - Malignant neoplasm of prostate Category: Medical Plan Referal Dr Llanes for assessment Rerun insurance for targetted cryotherapy Orders: Referrals Radiation Oncology Referral C61 - Malignant neoplasm of prostate Patient Instructions: This note is constructed using voice recognition software. While every effort has been made to ensure accuracy building construction foreman errors may have been included. Imaging studies, laboratory and physical exam results were discussed and reviewed in detail. No major barriers to patient understanding were identified. An opportunity to ask questions regarding the treatment plan was provided. All questions were answered. The patient expressed understanding and agreement with the above treatment plan. The patient is aware they should contact our office by phone for worsening of their current condition or the appearance of new urologic symptoms. Compliance is encouraged with any medications and followup testing that is ordered. It is a privilege to participate in the urologic care of your patient. If you have any questions or concerns regarding treatment for the above conditions, or other urologic issues, please do not hesitate to contact me. The office telephone contact is [phone]. Sincerely, Dr Easton Chance MD, [facility] - Urology Compassionate Specialist Care for the Genitourinary System Coding Level of Care Code Tele Est Pt Level 3 (78430) Complex EM visit Add On G2651 Diagnoses Prostate cancer C61
--- OUTSIDE RECORDS SUMMARY | 2024-08-09 09:32 | XMS_ITS | Encounter Summary ---
[place] [address] Care Team Providers Care Field Nurse Name Role Phone Melinda Clemente Primary Care Provider [phone] Reason for Referral * Consultation (Routine) - Closed Specialty Diagnoses / Procedures Referred By Contac t Referred To Contact Pulmonology Diagnoses Chronic cough Storm Molina MD [address] [place] [address] [facility] [address] [place] [id number] Referral ID Status Reason Start Date Expiration Date V isits Requested Visits Authorized [id number] Closed Consult, Test & Treat 12/15/2018 12/15/2019 1 1 Encounter Details Date Type Department Care Team (Late st Contact Info) Description 12/15/2018 Community Orders External [phone] Storm Molina MD [address] [place] [address] Chronic cough Social History Tobacco Use Types Packs/Day Years Used Date Smoking Tobacco: Never Alcohol Use Standard Drinks/Week Comments No 0 (1 standard drink = 0.6 oz pur e alcohol) Sex and Gender Information Value Date Recorded Sex Assigned at Not on file Gender Identity Not on file Sexual Orientation Not on file documented as of this encounter Plan of Treatment Scheduled Referrals Name Type Priority Associated Diagnoses Order Schedule Referral to Pulmonology Outpatient Referral Routine Chronic cough Ordered: 12/15/2018 documented as of this encounter Visit Diagnoses Diagnosis Chronic cough Cough documented in this encounter Care Teams Field Nurse Relationship Specialty Start Date End Date Melinda Clemente PA [address] [place] [address] PCP - General 11/16/22 documented as of this encounter
--- OUTSIDE RECORDS SUMMARY | 2024-08-09 09:33 | XMS_ITS | Encounter Summary ---
Author Organization [facility] Address [address] [place] [address] Care Team Providers Care Urinalysis Technician Name Role Phone Saran Andujar Primary Care Provider [phone] Encounter Details Date Type Department Care Team (Latest Contact Info) Description 07/18/2024 2:30 PM EST - 07/18/2024 11:59 PM EST Hospital Encounter [facility] Radiation Oncology [address] [place] [address] - [place] [address] Van Leon MD [address] [place] [phone] Prostate cancer (HCC) (Primary Dx) Discharge Disposition: Home or Self Care () Social History Tobacco Use Types Packs/Day Years Used Date Smoking Tobacco: Never Assessed Sex and Gender Information Value Date Recorded Sex Assigned at Not on file Legal Sex Male 11:44 AM EDT Gender Identity Not on file Sexual Orientation Not on file documented as of this encounter Miscellaneous Notes * Radiation Oncology Outpatient Consultation - Van Leon MD - 07/18/2024 2:30 PM EST I called Mr. Adams for scheduled phone call today. Briefly, he was diagnosed with prostate cancer back in 2021 ([place] 3+3) and was on active surveillance. He had a second biopsy in October 2022 which revealed [place] 3+4 disease. He has not received any treatment to date. He is interested in brachytherapy and thus was referred to speak with me. I explained that we will need to get a repeat biopsy before I can make any formal recommendation. His latest biopsy is now almost 2 years old. Given he has [place] 3+4 disease and PSA has been consistently above 10, he likely has at least unfavorable intermediate risk disease. In that case, I do not think brachytherapy alone will be sufficient. I would recommend brachytherapy combination therapy (in which seed implant is done and then he returns for external beam treatment). He could also consider prostatectomy or external beam radiation without seed implant. Regardless, I would like to see arepeat biopsy before making any formal recommendation. I reviewed with him the side effects of radiation therapy, including fatigue, diarrhea, loose stool, rectal irritation, dysuria, urinary frequency/urgency, nocturia, weak urine stream, erectile dysfunction, sterility, and slight increased risk of developing a secondary malignancy. I explained that compared to surgery, radiation tends to result in less urinary incontinence and less erectile dysfunction, but more diarrhea and GI related side effects. I explained that brachytherapy combination tends to result in more side effects than external beam treatment alone. However, serious life alteringside effects are rare with any of the prostate radiation treatments. He will be contacting his local urologist about repeat biopsy. He would like to follow up with me by phone once results are in. I will tentatively set a follow up phone call appointment in 6 weeks which we can move if needed. This telehealth visit was conducted by telephone from the office of Dr. Van Leon on 07/18/24. The phone call lasted 20 minutes. An additional 15 minutes were used for documentation and chart review. documented in this encounter Plan of Treatment Upcoming Encounters Date Type Department Care Team (Late st Contact Info) Description 09/04/2024 10:00 AM EDT Appointment [facility] Radiation Oncology [address] [place] [address] - [place] [address] Van Leon MD [address] [place] [phone] documented as of this encounter Visit Diagnoses Diagnosis Prostate cancer (HCC)- Primary Malignant neoplasm of prostate documented in this encounter Care Teams Urinalysis Technician Relationship Specialty Start Date End Date Saran Andujar [address] [place] [id number] PCP - General 06/20/24 documented as of this encounter
--- OUTSIDE RECORDS SUMMARY | 2024-08-09 09:33 | XMS_ITS | Clinical Summary ---
Author Organization [facility] Address [facility] [place] [address] Care Team Providers Care Electrical System Specialist Name Role Phone Melinda Clemente Primary Care Provider Allergies Active Allergy Reactions Criticality Noted Date Comments Morphine Nausea Only Low 01/02/2019 Prednisone Anxiety Low 02/06/2014 Keeps patient wide awake Medications Medication Sig Dispensed Refills Start Date End Date Status PROAIR HFA 90 mcg/actuation HFA Aerosol Inhaler INHALE 2 PUFFS USING INHALER EVERY 4 HOURS NEEDED 6 05/05/2016 Active Ascorbic Acid 1,000 mg Tablet, Chewable Take 1,000 mg by mouth daily. Active cholecalciferol, Vitamin D3, 400 unit Capsule Take 400 Units by mouth daily. Active HERBAL DRUGS ORAL Take 1 tablet by mouth daily. Permalung, Unflamed Active multivitamin with minerals Tablet Take 1 tablet by mouth daily. Zinc based Active montelukast (Singulair) 10 mg Tablet Take 10 mg by mouth daily. 08/28/2019 Active meloxicam (MOBIC) 15 mg TabletIndications:Prima ry osteoarthritis of first carpometacarpal joint of left hand Take 1 tablet by mouth daily. 30 tablet 3 01/02/2020 Active colchicine (Colcrys) 0.6 mg TabletIndications:Strai n of extensor muscle, fascia and tendon of left little finger at wrist and hand level, initial encounter,Primary osteoarthritis of first carpometacarpal joint of left hand Take 1 tablet by mouth daily. 60 tablet 3 01/02/2020 Active Active Problems Problem Noted Date Diagnosed Date Gouty arthropathy 12/06/2019 Synovitis of finger 12/03/2019 Strain of extensor muscle, f ascia and tendon of left little finger at wrist and hand level, initial encounter 11/13/2019 H/O thumb surgery 06/19/2019 Arthropathy 02/22/2019 BPH (benign prostatic hyperplasia) 02/22/2019 Hypertension, essential 02/22/2019 Primary osteoarthritis of fi rst carpometacarpal joint of left hand 02/22/2019 Lumbar disc herniation 02/22/2019 Reactive airway disease 09/03/2014 Resolved Problems Problem Noted Date Diagnosed Date Resolved Date Compression fracture 02/22/2019 019 Right groin pain 01/04/2019 04/25/2019 Right inguinal hernia 05/31/20162018 BPH associated with nocturia 04/25/2019 Immunizations Name Administration Dates Next Due Td Adult 02/18/1997 Td Adult (not absorbed) 11/29/2005 Tdap (Adacel, Boostrix) 08/02/2007 Tuberculin Skin Test, PPD 07/22/2017,07/06/2017 Family History Medical History Relation Comments Abdominal Aortic Aneurysm Father Asthma Father Hypertension Father Prostate Cancer Father Skin Cancer Mother Prostate Cancer Paternal Grandfather Relation Status Comments Father Mother Paternal Grandfather Social History Tobacco Use Types Packs/Day Years Used Date Smoking Tobacco: Never Smokeless Tobacco: Never Alcohol Use Standard Drinks/Week Comments Yes 0 (1 standard drink = 0.6 oz pur e alcohol) occas Sex and Gender Information Value Date Recorded Sex Assigned at Not on file Gender Identity Not on file Sexual Orientation Not on file Last Filed Vital Signs Vital Sign Reading Time Taken Comments Blood Pressure 141/96 05/25/2019 7:39 PM EST Pulse 82 05/25/2019 7:39 PM EST Temperature 36.6 ??C (97.9 ??F) 05/25/2019 6:06 PM ES T Respiratory Rate 16 05/25/2019 7:39 PM EST Oxygen Saturation 95% 05/25/2019 7:39 PM EST Inhaled Oxygen Concentration - - Weight 79.8 kg (175 lb 14.8 oz) 020 12:14 PM EDT Height 172.1 cm (5' 7.76 ) 12/31/2019 1 2:14 PM EDT Body Mass Index 26.94 12/31/2019 12:14 PM EDT Plan of Treatment Health Maintenance Due Date Last Done Comments CT Colonography 1957 FIT DNA 1957 FIT 1957 Sigmoidoscopy (10 year) with FIT yearly 1957 Sigmoidoscopy 1957 Hepatitis C Screening 1975 Pneumoccocal Vaccine: 50+ (1 of 1 - PCV) 2007 Zoster vaccine (1 of 2) 2007 Advance Directive 2012 Lipid Screening 06/30/2016 06/30/2011, 03/11/2009 Tetanus/Diphtheria/Pertussis Vaccines (2 - Td or Tdap) 08/02/2017 08/02/2007, 11/29/2005, 02/18/1997 Colonoscopy 08/25/2021 08/26/2011 (See prior EHR) Colorectal Cancer Screening 08/25/2021 Covid-19 Vaccine ( season) 2024 Influenza (Flu) vaccine (1 o f 1 - Influenza standard series) 02/19/2024 Medical Devices Implanted Type Area Fire Lookout Device Identifier Shelf Expiration Date Model / Serial / Lot Mesh,3dmax,Lr g,Right,4x6in ([id number]) - [id number] Implanted:Qty : 1 on 06/09/2016 by Santos Borja MD at [facility] IMPLANTS Right: [employer] - 1825 03/17/2021 [id number] / / [id number] Procedures Procedure Name Priority Date/Time Associated Diagnosis Comments LIPID PANEL (REFLEX DIRECT LDL) Routine 06/30/2011 7:14 AM EST from Last 3 Months or Most Recently Relevant to Health Maintenance Results * (ABNORMAL) Lipid Panel (Reflex Direct LDL) (06/30/2011 7:14 AM EST) Cholesterol, Total 238(ExtH) 0 - 199 mg/dL DARA URENA DAY CONVERSION Triglyceride 113(Exter nal Lab) 0 - 199 mg/dL DARA URENA DAY CONVERSION HDL Cholesterol 73.4(ExtH ) 27 - 67 mg/dL DARA URENA DAY CONVERSION LDL Cholesterol 142(Exter nal Lab) DARA URENA DAY CONVERSION VLDL 22.6(Exte rnal Lab) mg/dL DARA URENA DAY CONVERSION Cholesterol/HDL Ratio 3.2(ExtL) 3.5 - 5.0 DARA URENA DAY CONVERSION 06/30/2011 7:14 AM EST Results Provider Apd Conversion MD CRISTINA JONES ORDERABLES DARA URENA DAY CONVERSION from Last 3 Months or Most Recently Relevant to Health Maintenance Advance Directives * Full Code (Latest Code Status on File) Date Activated Date Inactivated Comments 06/09/2016 9:54 AM 06/09/2016 3:47 PM Question Answer Comments Does patient have capacity to make decision: Yes Care Teams Electrical System Specialist Relationship Specialty Start Date End Date Melinda Clemente PA [address] [place] [address] PCP - General 11/16/22
--- OUTSIDE RECORDS SUMMARY | 2024-08-09 09:33 | XMS_ITS | Clinical Summary ---
Author Organization [facility] Address [address] [place] [address] Care Team Providers Care Athletic Turf Worker Name Role Phone Saran Andujar Primary Care Provider [phone] Allergies No known active allergies Encounters Date Type Department Care Team Description 07/18/2024 2:30 PM EST - 07/18/2024 11:59 PM EST Hospital Encounter [facility] Radiation Oncology [address] [place] [address] Van Leon MD Prostate cancer (HCC) (Primary Dx) Discharge Disposition: Home or Self Care (01) from Last 3 Months Social History Tobacco Use Types Packs/Day Years Used Date Smoking Tobacco: Never Assessed Sex and Gender Information Value Date Recorded Sex Assigned at Not on file Legal Sex Male 11:44 AM EDT Gender Identity Not on file Sexual Orientation Not on file Plan of Treatment Upcoming Encounters Date Type Department Care Team (Late st Contact Info) Description 09/04/2024 10:00 AM EDT Appointment [facility] Radiation Oncology [address] [place] [address] Van Leon MD [address] [place] [phone] Health Maintenance Due Date Last Done Comments Cologuard 1957 Colon Cancer Screening 1957 Colonoscopy 1957 FOBT / Fit Test 1957 Hepatitis C Screening 1957 Sigmoidoscopy 1957 COVID-19 Vaccine (#1) 1962 Pneumococcal Vaccine: 50+ Years (1 of 2 - PCV) 1976 Zoster Vaccines (1 of 2) 1976 DTaP,Tdap,and Td Vaccines (2 - Td or Tdap) 08/02/2017 08/02/2007, 11/29/2005, 02/18/1997 Influenza Vaccine (#1) 2024 Alcohol/Substance Use Screening 06/20/2024 Depression Screening and Follow-Up 06/20/2024 Health Care Proxy Review 06/20/2024 Social Drivers of Health Annual Screening 06/20/2024 RSV Vaccine (60+ years old a nd patients) (1 - 1-dose 75+ series) 2032 Hepatitis B Vaccines Aged Out No long er eligible based on patient's age to complete this topic Insurance MEDICARE [facility] MEDICARE Care Teams Athletic Turf Worker Relationship Specialty Start Date End Date Saran Andujar [address] [place] [address] PCP - General 06/20/24
--- OUTSIDE RECORDS SUMMARY | 2024-08-09 09:33 | XMS_ITS | Encounter Summary ---
[place] [address] Care Team Providers Care Block Layer Name Role Phone Melinda Clemente Primary Care Provider [phone] Reason for Referral * Consultation (Routine) - Closed Specialty Diagnoses / Procedures Referred By Bernardino henry Referred To Contact Gastroenterology Diagnoses Routine general medical examination at a health care facility Storm Molina MD [address] [place] [address] [facility] Endoscopy [address] [place] [address] Referral ID Status Reason Start Date Expiration Date V isits Requested Visits Authorized [id number] Closed Consult, Test & Treat 11/03/2020 11/03/2021 1 1 Encounter Details Date Type Department Care Team (Late st Contact Info) Description 11/03/2020 Community Orders External [phone] Storm Molina MD [address] [place] [address] Routine general medical examination at a health care facility Social History Tobacco Use Types Packs/Day Years [...] Priority Associated Diagnoses Order Schedule Referral to Gastroenterology Outpatient Referral Routine Routine general medical examination at a health care facility Ordered: 11/03/2020 documented as of this encounter Visit Diagnoses Diagnosis Routine general medical examination at a health care facility documented in this encounter Care Teams Block Layer Relationship Specialty Start Date End Date Melinda Clemente PA [address] [place] [address] PCP - General 11/16/22 documented as of this encounter
--- OUTSIDE RECORDS SUMMARY | 2024-08-09 09:33 | XMS_ITS | Referral Summary ---
Author Organization [facility] Address [address] [place] [address] Care Team Providers Care Asp Net Developer Name Role Phone Saran Andujar Primary Care Provider [phone] Encounters Date Type Department Care Team Description 07/18/2024 2:30 PM EST - 07/18/2024 11:59 PM EST Hospital Encounter [facility] Radiation Oncology [address] [place] [address] Van Leon MD Prostate cancer (HCC) (Primary Dx) Discharge Disposition: Home or Self Care (01) from Last 3 Months Allergies No known active allergies Social History Tobacco Use Types Packs/Day Years Used Date Smoking Tobacco: Never Assessed Sex and Gender Information Value Date Recorded Sex Assigned at Not on file Legal Sex Male 11:44 AM EDT Gender Identity Not on file Sexual Orientation Not on file Plan of Treatment Upcoming Encounters Date Type Department Care Team (Late st Contact Info) Description 09/04/2024 10:00 AM EDT Appointment [facility] Radiation Oncology [address] [place] [address] Van Leon MD [address] [place] [phone] Insurance MEDICARE [facility] MEDICARE Care Teams Asp Net Developer Relationship Specialty Start Date End Date Saran Andujar [address] [place] [address] PCP - General 06/20/24
--- OUTSIDE RECORDS SUMMARY | 2024-08-09 09:33 | XMS_ITS | Encounter Summary ---
[place] [address] Care Team Providers Care Wireless Architect Name Role Phone Melinda Clemente Primary Care Provider [phone] Reason for Referral * Consultation (Routine) - Closed Specialty Diagnoses / Procedures Referred By Contafua t Referred To Contact General Surgery Diagnoses Unilateral inguinal hernia without obstruction or gangrene, recurrence not specified Storm Molina MD [address] [place] [address] [facility] Gen Surgery [address] [place] [phone] Referral ID Status Reason Start Date Expiration Date V isits Requested Visits Authorized [id number] Closed Consult, Test & Treat 05/24/2016 05/24/2017 1 1 Encounter Details Date Type Department Care Team (Late st Contact Info) Description 05/24/2016 Community Orders External [phone] Storm Molina MD [address] [place], [place] [id number] Unilateral inguinal hernia without obstruction or gangrene, recurrence not specified Social History Tobacco Use Types Packs/Day Years Used Date Smoking Tobacco: Never Assessed Sex and Gender Information Value Date Recorded Sex Assigned at Not on file Gender Identity Not on file Sexual Orientation Not on file documented as of this encounter Plan of Treatment Scheduled Referrals Name Type Priority Associated Diagnoses Orde r Schedule Referral to General Surgery Outpatient Referral Routine Unilateral Inguinal Hernia Without Obstruction Or Gangrene, Recurrence Not Specified Ordered: 05/24/2016 documented as of this encounter Visit Diagnoses Diagnosis Unilateral inguinal hernia without obstruction or gangrene, recurrence not specified documented in this encounter Care Teams Wireless Architect Relationship Specialty Start Date End Date Melinda Clemente PA [address] [place] [address] PCP - General 11/16/22 documented as of this encounter
== END 2024-08-09 09:30 | disposition home or self-care (01) ==
LOC: HO.HUSH 08:59
PROVIDERS: PCP Family Medicine; Visit Provider Urology
DX: C61 Malignant neoplasm of prostate (principal)
CPT/HCPCS: 99213; G2211

== ENCOUNTER 2024-10-11 07:54 | Outpatient (REF) | payer MEDICARE, OTHER, SELFPAY ==
--- OUTSIDE RECORDS SUMMARY | 2024-10-11 08:01 | XMS_ITS | Encounter Summary ---
[place] [address] Care Team Providers Care Pipe Stripper Name Role Phone Melinda Clemente Primary Care Provider [phone] Reason for Referral * Consultation (Routine) - Closed Specialty Diagnoses / Procedures Referred By Contac t Referred To Contact Pulmonology Diagnoses Chronic cough Storm Molina MD [address] [place] [address] [facility] [address] [place] [phone] Referral ID Status Reason Start Date Expiration Date V isits Requested Visits Authorized [id number] Closed Consult, Test & Treat 12/15/2018 12/15/2019 1 1 Encounter Details Date Type Department Care Team (Late st Contact Info) Description 12/15/2018 Community Orders External [phone] Storm Molina MD [address] [place] [address] Chronic cough Social History Tobacco Use [...] Cough documented in this encounter Care Teams Pipe Stripper Relationship Specialty Start Date End Date Melinda Clemente PA [address] [place] [address] PCP - General 11/16/22 documented as of this encounter
--- OUTSIDE RECORDS SUMMARY | 2024-10-11 08:01 | XMS_ITS | Referral Summary ---
Author Organization [facility] Address [address] [place] [address] Care Team Providers Care Casing Grader Name Role Phone Saran Andujar Primary Care Provider [phone] Encounters Date Type Department Care Team Description 08/20/2024 12:50 PM EST - 08/20/2024 11:59 PM EST Hospital Encounter [facility] Radiation Oncology [address] [place] [phone] Discharge Disposition: Home or Self Care () 07/18/2024 2:30 PM EST - 07/18/2024 11:59 PM EST Hospital Encounter [facility] Radiation Oncology [address] [place] [address] Van Leon MD Prostate cancer (Primary Dx) Discharge Disposition: Home or Self Care () from Last 3 Months Allergies No known active allergies Social History Tobacco Use Types Packs/Day Years Used Date Smoking Tobacco: Never Assessed Sex and Gender Information Value Date Recorded Sex Assigned at Not on file Legal Sex Male 11:44 AM EDT Gender Identity Not on file Sexual Orientation Not on file Plan of Treatment Not on file Insurance MEDICARE [facility] MEDICARE Care Teams Casing Grader Relationship Specialty Start Date End Date Saran Andujar [address] [place] [id number] PCP - General 06/20/24
--- OUTSIDE RECORDS SUMMARY | 2024-10-11 08:01 | XMS_ITS | Encounter Summary ---
[place] [address] Care Team Providers Care Terrazzo Layer Name Role Phone Melinda Clemente Primary Care Provider [phone] Reason for Referral * Consultation (Routine) - Closed Specialty Diagnoses / Procedures Referred By Contafua t Referred To Contact General Surgery Diagnoses Unilateral inguinal hernia without obstruction or gangrene, recurrence not specified Storm Molina MD [address] [place] [address] [facility] Gen Surgery [address] [place] [phone] Referral ID Status Reason Start Date Expiration Date V isits Requested Visits Authorized [id number] Closed Consult, Test & Treat 05/24/2016 05/24/2017 1 1 Encounter Details Date Type Department Care Team (Late st Contact Info) Description 05/24/2016 Community Orders External [phone] Storm Molina MD [address] [place], [place] [id number] Unilateral inguinal hernia without obstruction or gangrene, [...] specified documented in this encounter Care Teams Terrazzo Layer Relationship Specialty Start Date End Date Melinda Clemente PA [address] [place] [address] PCP - General 11/16/22 documented as of this encounter
--- OUTSIDE RECORDS SUMMARY | 2024-10-11 08:01 | XMS_ITS | Clinical Summary ---
Author Organization [facility] Address [facility] [place] [address] Care Team Providers Care Swimming Pool Service Technician Name Role Phone Melinda Clemente Primary Care Provider [phone] Allergies Active Allergy Reactions Criticality Noted Date [...] series) 02/19/2024 Medical Devices Implanted Type Area Press Tender Short Goods Device Identifier Shelf Expiration Date Model / Serial / Lot Mesh,3dmax,Lr g,Right,4x6in ([id number]) - [id number] Implanted:Qty : 1 on 06/09/2016 by Santos Borja MD at [facility] IMPLANTS Right: In[employer] - 1825 03/17/2021 [id number] / / [id number] Procedures Procedure Name Priority Date/Time Associated Diagnosis [...] EST Results Provider Apd Conversion MD CRISTINA JNOES ORDERABLES DARA URENA DAY CONVERSION from Last 3 Months or Most Recently Relevant to Health Maintenance Advance Directives * Full Code (Latest Code Status on File) Date Activated Date Inactivated Comments 06/09/2016 9:54 AM 06/09/2016 3:47 PM Question Answer Comments Does patient have capacity to make decision: Yes Care Teams Swimming Pool Service Technician Relationship Specialty Start Date End Date Melinda Clemente PA [address] [place] [address] PCP - General 11/16/22
--- OUTSIDE RECORDS SUMMARY | 2024-10-11 08:01 | XMS_ITS | Clinical Summary ---
Author Organization [facility] Address [address] [place] [address] Care Team Providers Care Authorization Coordinator Name Role Phone Saran Andujar Primary Care Provider [phone] Allergies No known active allergies Encounters Date Type Department Care Team Description 08/20/2024 12:50 PM EST - 08/20/2024 11:59 PM EST Hospital Encounter [facility] Radiation Oncology [address] [place] [address] Discharge Disposition: Home or Self Care () 07/18/2024 2:30 PM EST - 07/18/2024 11:59 PM EST Hospital Encounter [facility] Radiation Oncology [address] [place] [address] Van Leon MD Prostate cancer (Primary Dx) Discharge Disposition: Home or Self Care () from Last 3 Months Social History Tobacco Use Types Packs/Day Years Used Date Smoking Tobacco: Never Assessed Sex and Gender Information Value Date Recorded Sex Assigned at Not on file Legal Sex Male 11:44 AM EDT Gender Identity Not on file Sexual Orientation Not on file Plan of Treatment Health Maintenance Due Date Last Done Comments Cologuard 1957 Colon Cancer Screening 1957 Colonoscopy 1957 FOBT / Fit Test 1957 Sigmoidoscopy 1957 Pneumococcal Vaccine: 50+ Years (1 of 1 - PCV) 2007 Zoster Vaccines (1 of 2) 2007 DTaP,Tdap,and Td Vaccines (2 - Td or Tdap) 08/02/2017 08/02/2007, 11/29/2005, 02/18/1997 COVID-19 Vaccine (2023-2 5 season) 2024 Alcohol/Substance Use Screening 06/20/2024 Health Care Proxy Review 06/20/2024 Influenza Vaccine (Season Ended) 2025 RSV Vaccine (60+ years old a nd patients) (1 - 1-dose 75+ series) 2032 Hepatitis B Vaccines Aged Out No long er eligible based on patient's age to complete this topic Insurance MEDICARE [facility] MEDICARE Care Teams Authorization Coordinator Relationship Specialty Start Date End Date Saran Andujar [address] [place] [id number] PCP - General 06/20/24
--- OUTSIDE RECORDS SUMMARY | 2024-10-11 08:01 | XMS_ITS | Encounter Summary ---
Author [place] [address] Care Team Providers Care Zoo Caretaker Name Role Phone Melinda Clemente Primary Care Provider [phone] Reason for Referral * Consultation (Routine) - Closed Specialty Diagnoses / Procedures Referred By Bernardino henry Referred To Contact Gastroenterology Diagnoses Routine general medical examination at a health care facility Storm Molina MD [address] [place] [address] [facility] Endoscopy [address] [place] [address] Referral ID Status Reason Start Date Expiration Date V isits Requested Visits Authorized [id number] Closed Consult, Test & Treat 11/03/2020 11/03/2021 1 1 Encounter Details Date Type Department Care Team (Late st Contact Info) Description 11/03/2020 Community Orders External [phone] Storm Molina MD [address] [place] [address] Routine general medical examination at [...] facility documented in this encounter Care Teams Zoo Caretaker Relationship Specialty Start Date End Date Melinda Clemente PA [address] [place] [address] PCP - General 11/16/22 documented as of this encounter
[2024-10-11] MEDS: Lidocaine HCl 1 % MPF 5 ML VIAL 10 ML SUBCUT (08:47)
--- NOTE | 2024-10-11 09:01 | W.PM.OPN ---
Operative Note Operative Note Date of Service: 10/11/24 Narrative: Preoperative diagnosis: Prostate Cancer Postoperative diagnosis: Prostate Cancer Procedure: 1. transrectal ultrasound measurement of prostate 2. transrectal ultrasound-guided pudendal nerve block 3. transrectal ultrasound-guided prostate biopsy 12 core Surgeon: Dr. Easton Chance Anesthetic: 10cc 1% lidocaine Indications for procedure: Prostate Cancer - Gl 3+3 - 3+4 - left anterior mid Counselling: Technical aspects, risks and benefits of proposed procedure were discussed in full. All questions have been answered, written consent has been obtained and patient agrees to proceed. Procedure: The patient was brought into the procedure area and placed in a left lateral decubitus position. Patient identity confirmed. Perioperative antibiotics confirmed. Safety pause time out performed. BESSY was performed to dilate rectal sphincter Iodine 10cc with 60 cc gel was placed per rectum to reduce infection risk using a catheter tip syringe. 8 Hz Otoniel rectal end-fire ultrasound probe was placed transrectally without difficulty. The prostate was visualized. Seminal vesicles were normal. Prostate margins were clearly demarcated. Bladder was seen superiorly. Midline posterior cystic structures were noted small calcifications were noted at the surgical margin The prostate was otherwise homogeneous in nature no definitive nodularity or recognizable areas of suspicion The prostate was measured in 3 dimensions Prostatic Width: 5.1 cm Prostatic Height: 2.4 cm Urethral Length: 4.3 cm Total volume equals : 30 ml An ultrasound-guided pudendal nerve block was performed using a 22 gauge spinal needle in the sagittal plane. 4 cc of 1% lidocaine placed at the junction of each seminal vesicle and 2 cc placed at the apex of the prostate. A 12 core biopsy was performed with 6 cores each side using an 18 gauge prostate biopsy gun. Two cores each were taken at the prostate apex, mid and base on each side. Cores were spaced between lateral and medial aspects. Each core was examined as placed on specimen foam as part of manufacturing quality technician to ensure a minimum 1 cm of length and minimal discontinuity. He tolerated the procedure well with minimal rectal bleeding. Blood pressure remained stable following procedure. He was able to ambulate to bathroom after 5 minutes. Printed instructions regarding antibiotic use and common adverse events from the procedure such as low-grade temperature, potential infection and bleeding were given. He understands to call the office or go to an emergency room should any of these events arise. Pathology: 12 core prostate biopsy. CPT code 00400: Transrectal ultrasound; this is a diagnostic test for evaluation of the prostate and surrounding structures, looking for abnormalities or suspicious areas worrisome for cancer CPT code 26355: Biopsy, prostate; needle or punch, single or multiple, any approach CPT code 71126: Ultrasonic guidance for needle placement (eg, biopsy, aspiration, injection, localization device), imaging supervision and interpretation
== END 2024-10-11 07:55 | disposition home or self-care (01) ==
LOC: HO.US 07:54
PROVIDERS: Visit Provider Urology
DX: C61 Malignant neoplasm of prostate (principal)
CPT/HCPCS: 55700; 76942; 88305; 88344; J2003

== ENCOUNTER → 2024-10-11 07:54 | Outpatient (BNV) | payer MEDICARE, OTHER, SELFPAY | PROVIDERS: Visit Provider Urology | DX: C61 Malignant neoplasm of prostate (principal) | CPT/HCPCS: 55700; 76872; 76942 ==

== ENCOUNTER 2024-10-24 15:00 | Outpatient (AMB) | payer MEDICARE, OTHER, SELFPAY ==
--- NOTE | 2024-10-24 15:03 | MHC.OFFVIS ---
Intake Visit Reasons: Prostate biopsy follow up Intake Note: Patient is present for PROSTATE BIOPSY F/U Urology Medication:NONE Antibiotic Allergy:NONE Blood Thinner:NONE Plant Maintenance Worker Required: No Allergies midazolam [From Versed] Adverse Reaction (Verified 10/24/24 15:03) Nausea morphine Adverse Reaction (Verified 10/24/24 15:03) Nausea and Vomiting HPI Comments Details: Sergio is very pleasant male. He is a patient of Dr. Andujar. He seen for the following urologic conditions - prostate cancer Telemedicine Evaluation 15 min Consultation Berggi Syed Video Re-biopsy with minimal issues Confirm that repeat biopsy shows low volume intermediate risk prostate cancer. Question of grade group movement from 2 to 3 however this should not be a barrier to brachytherapy. Particularly when there was no evidence of perineural invasion. Sergio will follow-up with Dr. Llanes. Discussed follow-up surveillance with Sergio. Would perform 1st PSA check three-month. 11/11 Follow-up repeat biopsy Reconfirms low volume intermediate risk prostate cancer No suspicious features particular perineural invasion Histologic grade: [place] score: 4+3=7 (left apex lateral 10%), 3+4=7 (left base lateral 20%), 3+3=6 (left mid lateral 5%) % of pattern 4: 35% of the tumor Number cores positive: 3 Total number of cores: 12 % of tissue involved: Approximately 3% of all tissue examined Periprostatic fat inv.: Not identified Seminal vesicle inv.: Not identified Perineural inv.: Not identified LVI: Not identified 08/14 Did review case with Dr. Karimi at [facility]. He would need to brachytherapy for [place] 3 + [address] Have discussed case with [address] Rollins at [facility] - he suggested Dr. Llanes at [facility] Will look at referral Will also try for prior authorization for targeted cryotherapy Targeted focal therapy cost estimate 15-20K dollars MRI 02/10 1.3cm PiRADS 4 lesion left lateral zone - similar to 2021 PSA had fallen with finasteride - had side effects so came off medication 11/09 Biopsy Histologic type: Adenocarcinoma; acinar type [place] score: 3+4=7 (c 3.5, D 4.0; c 4.0) - % of pattern 4: 15% of the tumor 3+3=6 (d 3.5; d 3.0) Tumor quantitation: Number cores positive: 5 Total number of cores: 19 % of tissue involved: 10% of all tissue examined Prostate cancer - favorable intermediate, low volume, clinically localized 06/2021 Diagnosed [address] Mccormack in [place] Initial PSA 12 PSA - 04/10 19, 09/09 14 07/11 Biopsy - Biopsy 2 out of 12 cores each less than 20% with [place] 3 + 3 Imaging - 12/09 MRI left lateral peripheral zone wedge shaped PI-RADS 3 Total size 50 g Prolaris 01/08 - Borderline active surveillance/single therapy PFSH Medical History Elevated cholesterol HTN (hypertension) Surgical History Hx of right inguinal hernia repair Hx of hand surgery Social History Patient Tobacco Use Status: Never used Tobacco Review of Systems Const All systems reviewed & are unremarkable except as noted in HPI and below Reports no additional complaints Resp Reports no additional complaints GI Reports no additional complaints Reports as per HPI Musc Reports no additional complaints Physical Exam Telemedicine evaluation Appropriate responses Regular breathing rate and rhythm HEENT Head: Yes normal to inspection Ears: hearing grossly normal bilaterally Eyes General: appearance normal, both eyes and all related structures Neck Neck: Yes normal visual inspection Chest Chest palpation & inspection: normal inspection of the chest Resp Effort & Inspection: normal respiratory effort and able to speak in complete sentences Telehealth Telehealth Telehealth Platform: [facility] Location of provider rendering services: practice address Location of patient: address on file Patient Identification confirmed using: Name, : Yes Telehealth method: video Patient verbally consented to treatment: Yes Patient verbally consented to billing insurance company: Yes Patient informed of any privacy concerns related to visit: Yes Minutes spent on Phone/Video with Pt.: 15 Assessment & Plan Assessment & Plan (1) Prostate cancer: Comment: June 2021 biopsy 2 of 12 cores positive less than 20% [place] 3+3 - PSA 12 Code(s): C61 - Malignant neoplasm of prostate Category: Medical Plan Planned brachytherapy Patient Instructions: This note is constructed using voice recognition software. While every effort has been made to ensure accuracy textile coating machine operator errors may have been included. Imaging studies, laboratory and physical exam results were discussed and reviewed in detail. No major barriers to patient understanding were identified. An opportunity to ask questions regarding the treatment plan was provided. All questions were answered. The patient expressed understanding and agreement with the above treatment plan. The patient is aware they should contact our office by phone for worsening of their current condition or the appearance of new urologic symptoms. Compliance is encouraged with any medications and followup testing that is ordered. It is a privilege to participate in the urologic care of your patient. If you have any questions or concerns regarding treatment for the above conditions, or other urologic issues, please do not hesitate to contact me. The office telephone contact is [phone]. Sincerely, Dr Easton Chance MD, [facility] - Urology Compassionate Specialist Care for the Genitourinary System Coding Level of Care Code Tele Est Pt Level 3 (05670) Complex EM visit Add On G2211 Diagnoses Prostate cancer C61
--- OUTSIDE RECORDS SUMMARY | 2024-10-24 16:02 | XMS_ITS | Referral Summary ---
Author Organization [facility] Address [address] [place] [address] Care Team Providers Care Linux System Engineer Name Role Phone Saran Andujar Primary Care Provider [phone] Encounters Date Type Department Care Team Description 08/20/2024 12:50 PM EST - 08/20/2024 11:59 PM EST Hospital Encounter [facility] Radiation Oncology [address] [place] [id number] Discharge Disposition: Home or Self Care (01) [...] of Treatment Not on file Insurance MEDICARE [facility] MEDICARE Care Teams Linux System Engineer Relationship Specialty Start Date End Date Saran Andujar [address] [place] [id number] PCP - General 06/20/24
--- OUTSIDE RECORDS SUMMARY | 2024-10-24 16:02 | XMS_ITS | Clinical Summary ---
Author Organization [facility] Address [address] [place] [address] Care Team Providers Care Atlassian Administrator Name Role Phone Saran Andujar Primary Care Provider [phone] Allergies No known active allergies Encounters Date Type Department Care Team Description 08/20/2024 12:50 PM EST - 08/20/2024 11:59 PM EST Hospital Encounter [facility] Radiation Oncology [address] [place] [address] - [place] [address] Discharge Disposition: Home or Self Care (01) [...] Tdap) 08/02/2017 08/02/2007, 11/29/2005, 02/18/1997 COVID-19 Vaccine ( - 2023-2 5 season) 2024 Alcohol/Substance Use Screening 06/20/2024 Health Care Proxy Review 06/20/2024 Influenza Vaccine (Season Ended) 2025 RSV Vaccine (60+ years old a nd patients) (1 - 1-dose 75+ series) 2032 Hepatitis B Vaccines Aged Out No long er eligible based on patient's age to complete this topic Insurance MEDICARE [facility] MEDICARE Care Teams Atlassian Administrator Relationship Specialty Start Date End Date Saran Andujar [address] [place] [id number] PCP - General 06/20/24
== END 2024-10-24 15:49 | disposition home or self-care (01) ==
LOC: HO.HUSH 15:00
PROVIDERS: Visit Provider Urology
DX: C61 Malignant neoplasm of prostate (principal)
CPT/HCPCS: 99213; G2211

== ENCOUNTER → 2024-10-24 15:00 | Outpatient (BNVA) | payer MEDICARE, OTHER, SELFPAY | PROVIDERS: Visit Provider Urology ==

== ENCOUNTER 2025-02-20 13:16 | Outpatient (AMB) | payer MEDICARE, OTHER, SELFPAY ==
--- NOTE | 2025-02-20 13:17 | MHC.OFFVIS ---
Intake Visit Reasons: Prostate cryo follow up Intake Note: Patient is present for PROSTATE CRYOF/U Urology Medication:NONE Antibiotic Allergy:NONE Blood Thinner:NONE General Assignment Reporter Required: No Accompanied by: Self / Same As Patient Allergies midazolam (From Versed) Adverse Reaction (Verified 02/20/25 13:18) Nausea morphine Adverse Reaction (Verified 02/20/25 13:18) Nausea and Vomiting HPI Comments Details: Sergio is very pleasant male. He is a patient of Dr. Andujar. He seen for the following urologic conditions - prostate cancer Telemedicine Evaluation 15 min Consultation Enswers Syed Video 02/11 Currently on hormone blockade Had high testosterone when tested at [facility] Planning on going ahead with brachytherapy He will call to confirm dates with office Confirm that repeat biopsy shows low volume intermediate risk prostate cancer. Question of grade group movement from 2 to 3 however this should not be a barrier to brachytherapy. Particularly when there was no evidence of perineural invasion. Sergio will follow-up with Dr. Llanes. 11/11 Follow-up repeat biopsy Reconfirms low volume intermediate risk prostate cancer No suspicious features particular perineural invasion Histologic grade: [place] score: 4+3=7 (left apex lateral 10%), 3+4=7 (left base lateral 20%), 3+3=6 (left mid lateral 5%) % of pattern 4: 35% of the tumor Number cores positive: 3 Total number of cores: 12 - % of tissue involved: Approximately 3% of all tissue examined Periprostatic fat inv.: Not identified Seminal vesicle inv.: Not identified Perineural inv.: Not identified LVI: Not identified 08/14 Did review case with Dr. Karimi at [facility]. He would need to brachytherapy for [place] 3 + [address] Have discussed case with [address] Rollins at [facility] - he suggested Dr. Llanes at [facility] Will look at referral Will also try for prior authorization for targeted cryotherapy Targeted focal therapy cost estimate 15-20K dollars MRI 02/10 1.3cm PiRADS 4 lesion left lateral zone - similar to 11/09 Biopsy Histologic type: Adenocarcinoma; acinar type [place] score: 3+4=7 (c 3.5, D 4.0; c 4.0) - % of pattern 4: 15% of the tumor 3+3=6 (d 3.5; d 3.0) Tumor quantitation: Number cores positive: 5 Total number of cores: 19 % of tissue involved: 10% of all tissue examined Prostate cancer - favorable intermediate, low volume, clinically localized 06/2021 Diagnosed [address] Mccormack in [place] Initial PSA 12 PSA - 04/10 19, 09/09 14 07/11 Biopsy - Biopsy 2 out of 12 cores each less than 20% with [place] 3 + 3 Imaging - 12/09 MRI left lateral peripheral zone wedge shaped PI-RADS 3 Total size 50 g Prolaris 01/08 - Borderline active surveillance/single therapy [facility] Medical History (Updated 11/15/24 @ 14:24 by Adina Anderson, RN) Reactive airway disease Osteoarthritis Lumbar disc herniation Gouty arthropathy Elevated cholesterol HTN (hypertension) Surgical History Hx of right inguinal hernia repair Hx of hand surgery Social History Patient Tobacco Use Status: Never used Tobacco Review of Systems Const All systems reviewed & are unremarkable except as noted in HPI and below Reports no additional complaints Resp Reports no additional complaints GI Reports no additional complaints Reports as per HPI Musc Reports no additional complaints Physical Exam Telemedicine evaluation Appropriate responses Regular breathing rate and rhythm HEENT Head: Yes normal to inspection Ears: hearing grossly normal bilaterally Eyes General: appearance normal, both eyes and all related structures Neck Neck: Yes normal visual inspection Chest Chest palpation & inspection: normal inspection of the chest Resp Effort & Inspection: normal respiratory effort and able to speak in complete sentences Telehealth Telehealth Telehealth Platform: [facility] Location of provider rendering services: practice address Location of patient: address on file Patient Identification confirmed using: Name, : Yes Telehealth method: video Patient verbally consented to treatment: Yes Patient verbally consented to billing insurance company: Yes Patient informed of any privacy concerns related to visit: Yes Minutes spent on Phone/Video with Pt.: 15 Assessment & Plan Assessment & Plan (1) Prostate cancer: Comment: June 2021 biopsy 2 of 12 cores positive less than 20% [place] 3+3 - PSA 12 Code(s): C61 - Malignant neoplasm of prostate Category: Medical Plan Six-month follow-up Patient Instructions: This note is constructed using voice recognition software. While every effort has been made to ensure accuracy budget record clerk errors may have been included. Imaging studies, laboratory and physical exam results were discussed and reviewed in detail. No major barriers to patient understanding were identified. An opportunity to ask questions regarding the treatment plan was provided. All questions were answered. The patient expressed understanding and agreement with the above treatment plan. The patient is aware they should contact our office by phone for worsening of their current condition or the appearance of new urologic symptoms. Compliance is encouraged with any medications and followup testing that is ordered. It is a privilege to participate in the urologic care of your patient. If you have any questions or concerns regarding treatment for the above conditions, or other urologic issues, please do not hesitate to contact me. The office telephone contact is [phone]. Sincerely, Dr Easton Chance MD, [facility] - Urology Compassionate Specialist Care for the Genitourinary System Coding Level of Care Code Tele Est Pt Level 3 (00712) Complex EM visit Add On G2211 Diagnoses Prostate cancer C61
--- OUTSIDE RECORDS SUMMARY | 2025-02-20 15:35 | XMS_ITS | Encounter Summary ---
[place] [address] Care Team Providers Care Manager Photo Name Role Phone Melinda Clemente Primary Care Provider [phone] Reason for Referral * Consultation (Routine) - Closed Specialty Diagnoses / Procedures Referred By Bernardino henry Referred To Contact Gastroenterology Diagnoses Routine general medical examination at a health care facility Storm Molina MD Phone: tel: fax: [place] [address] Phone: tel: Referral ID Status Reason Start Date Expiration Date V isits Requested Visits Authorized [id number] Closed Consult, Test & Treat 11/03/2020 11/03/2021 1 1 Encounter Details Date Type Department Care Team (Late st Contact Info) Description 11/03/2020 Community Orders External [phone] Storm Molina MD [address] [place] [address] Routine general medical examination at a health care facility Social History Tobacco Use Types Packs/Day Years Used Date Smoking Tobacco: Never Smokeless Tobacco: Never Alcohol Use Standard Drinks/Week Comments Yes 0 (1 standard drink = 0.6 oz pur e alcohol) occas Sex and Gender Information Value Date Recorded Sex Assigned at Not on file Legal Sex Male 6:47 AM EST Gender Identity Not on file Sexual Orientation Not on file 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 Not on file Not on file documented as of this encounter Plan of Treatment Scheduled Referrals Name Type Priority Associated Diagnoses Order Schedule Referral to Gastroenterology Outpatient Referral Routine Routine general medical examination at a health care facility Ordered: 11/03/2020 documented as of this encounter Visit Diagnoses Diagnosis Routine general medical examination at a health care facility documented in this encounter Care Teams Manager Photo Relationship Specialty Start Date End Date Melinda Clemente PA [address] [place] [address] PCP - General 11/16/22 documented as of this encounter
--- OUTSIDE RECORDS SUMMARY | 2025-02-20 15:35 | XMS_ITS | Clinical Summary ---
Author Organization [facility] Address [address] [place] [address] Care Team Providers Care Bank Accountant Name Role Phone Saran Andujar Primary Care Provider [phone] Allergies No known active allergies Social History [...] Td or Tdap) 08/02/2017 08/02/2007, 11/29/2005, 02/18/1997 Alcohol/Substance Use Screening 06/20/2024 Health Care Proxy Review 06/20/2024 COVID-19 Vaccine (1 - 2023-2 5 season) 2025 Influenza Vaccine (#1) 2025 RSV Vaccine (60+ years old a nd patients) (1 - 1-dose 75+ series) 2032 Hepatitis B Vaccines Aged Out No long er eligible based on patient's age to complete this topic Insurance MEDICARE [facility] MEDICARE Care Teams Bank Accountant Relationship Specialty Start Date End Date Saran Andujar [address] [place] [id number] PCP - General 06/20/24
--- OUTSIDE RECORDS SUMMARY | 2025-02-20 15:35 | XMS_ITS | Encounter Summary ---
[place] [address] Care Team Providers Care Software Test And Validation Engineer Name Role Phone Melinda Clemente Primary Care Provider [phone] Reason for Referral * Consultation (Routine) - Closed Specialty Diagnoses / Procedures Referred By Contafua t Referred To Contact General Surgery Diagnoses Unilateral inguinal hernia without obstruction or gangrene, recurrence not specified Storm Molina MD Phone: tel: fax: [place] [address] Phone: tel: fax: Referral ID Status Reason Start Date Expiration Date V isits Requested Visits Authorized [id number] Closed Consult, Test & Treat 05/24/2016 05/24/2017 1 1 Encounter Details Date Type Department Care Team (Late st Contact Info) Description 05/24/2016 Community Orders External [phone] Storm Molina MD [address] [place] [address] Unilateral inguinal hernia without obstruction or gangrene, [...] specified documented in this encounter Care Teams Software Test And Validation Engineer Relationship Specialty Start Date End Date Melinda Clemente PA [address] [place] [address] PCP - General 11/16/22 documented as of this encounter
--- OUTSIDE RECORDS SUMMARY | 2025-02-20 15:35 | XMS_ITS | Clinical Summary ---
Author Organization [facility] Address [address] [facility] [address] [place] [address] Phone Care Team Providers Care Stock Checker Name Role Phone Valeriy Allen MD Primary Care Provider [phone] Easton Chance MD Unavailable Jurgen Avila MD Unavailable [phone] Allergies Active Allergy Reactions Criticality Noted Date Comments Morphine Nausea Only Low 01/02/2019 Prednisone Anxiety Low 02/06/2014 Keeps patient wide awake Medications cholecalciferol , vitamin D3, (VITAMIN D3) 10 mcg (400 unit) capsule Take 400 Units by mouth daily. Active multivitamin with minerals tablet Take 1 tablet by mouth daily. Active magnesium oxide 400 mg magnesium Cap Take 400 mg by mouth daily. Active vitamin K2 100 mcg capsule Take 100 mcg by mouth daily with breakfast. Take with a meal. Active relugolix (ORGOVYX) 120 mg tablet Take 1 tablet (120 mg total) by mouth daily. Initiate treatment with a loading dose of 360 mg on the first day and continue treatment with a 120 mg once daily 30 tablet 5 5 Active Active Problems Patient Care Coordination No te Formatting of this note migh t be different from the original. 01/17/25 - Patient enrolled into a jeffrey through [employer] for relugolix. It is valid 01/17/25-01/17/26. 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 Primary osteoarthritis of fi rst carpometacarpal joint of left hand 02/22/2019 Reactive airway disease 09/03/2014 Encounters Date Type Department Care Team Description 02/19/2025 Telephone [facility] in clinical affiliation with [address] [address] Vonnie Carrilloadi AVILA 02/15/2025 Documentation [facility] in clinical affiliation with [address] [address] Eron Manzano, RN 02/14/2025 Telephone [facility] in clinical affiliation with [address] [address] Gege Berry RN 02/14/2025 Telephone [facility] in clinical affiliation with [address] [address] Emelia Ruff Appointment 02/12/2025 Orders Only [facility] in clinical affiliation with [address] [address] Eron Manzano, RN Prostate cancer (Primary Dx) 02/11/2025 Orders Only [facility] in clinical affiliation with [address] [address] April Sanchez DNP 02/11/2025 Documentation [facility] in clinical affiliation with [address] [place] [address] April Sanchez DNP 01/24/2025 Telephone [facility] in clinical affiliation with [address] [address] Gege Berry, RADHA 01/21/2025 Telephone [facility] in clinical affiliation with [address] [phone] Consuelo Gloria, PharmD Chemo Teaching (Relugolix teach) 01/14/2025 11:00 AM EDT Office Visit [facility] Department of Radiation Oncology, At [address] [address] Elvia Chu PA-C Orio, Peter F, DO Malignant neoplasm of prostate (Primary Dx) 01/14/2025 Telephone [facility] in clinical affiliation with [address] [phone] Gege Berry, RADHA 01/10/2025 11:00 AM EDT Office Visit [facility] in clinical affiliation with [address] [phone] Jurgen Avila MD Prostate cancer (Primary Dx) 12/13/2024 Orders Only [facility] Department of Radiation Oncology, At [address] [address] Elvia Chu PA-C Malignant neoplasm of prostate (Primary Dx) 12/05/2024 Documentation [facility] Department of Radiation Oncology, At [address] [address] Elvia Chu PA-C 11/21/2024 1:15 PM EDT Office Visit [facility] Department of Radiation Oncology, At [address] [address] Meir Llanes, Prostate cancer (Primary Dx) 11/21/2024 Documentation [facility] Department of Radiation Oncology, At [address] [address] Elvia Chu PA-C 11/21/2024 Ancillary Orders [facility] [address] [place] [address] Meir Llanes, from Last 3 Months Family History Medical History Relation Comments Prostate cancer Father Prostate cancer Paternal Grandfather Prostate cancer Paternal Uncle Relation Status Comments Father Paternal Grandfather Paternal Uncle Social History Tobacco Use Types Packs/Day Years Used Date Smoking Tobacco: Never Smokeless Tobacco: Never Tobacco Cessation:Counseling Given: Not Answered Alcohol Use Standard Drinks/Week Comments Yes 12 (1 standard drink = 0.6 oz pu re alcohol) Child or Family Care Answer Date Record ed Do you have problems with on e of the following making it difficult for you to work, study, or receive health care? No 01/07/2025 Education Answer Date Recorded Are you interested in more education? Not on keri e 08/28/2024 Are you concerned about learning? Not on file 08/28/2024 No 08/28/2024 No 08/28/2024 Food Answer Date Recorded Within the past 6 months we worried whether our food would run out before we got money to buy more. Never True 01/07/2025 Within the past 6 months the food we bought just didn't last and we didn't have enough money to get more. Never True Residential Stability Answer Date Recor ded What is your housing situation today? I have jaylen sing 01/07/2025 How many times have you move d in the past 12 months? Zero (I did not move) 01/07/2025 Paying for Meds Answer Date Recorded Do you have trouble paying for medicines? No 01/07/2025 Paying Utility Bills Answer Date Record ed Do you have trouble paying your heating or elect ricity bill? No 01/07/2025 Transportation Answer Date Recorded Has the lack of transportati on kept you from medical appointments or from getting medications? No 01/07/2025 Digital Access Answer Date Recorded No 08/28/2024 No 08/28/2024 Reliable internet access at home? Not on file 08/28/2024 Device with a working camera? Not on file Intimate Partner Violence Answer Date R ecorded Are you denied basic needs s uch as food, clothing, or medical care? No 09/12/2024 In the past 12 months have y ou been in a relationship with a person who hurts, threatens, or tries to control you? No 09/12/2024 Are you denied basic needs s uch as food, clothing, or medical care? No 09/12/2024 In the past 12 months have y ou been in a relationship with a person who hurts, threatens, or tries to control you? No 09/12/2024 Sex and Gender Information Value Date Recorded Sex Assigned at Male 08/23/2024 2:08 PM EST Legal Sex Male 2:05 PM EST Gender Identity Male 08/23/2024 2:08 PM EST Sexual Orientation Straight 08/23/2024 2: 08 PM EST Last Filed Vital Signs Vital Sign Reading Time Taken Comments Blood Pressure 169/91 01/10/2025 11:04 AM EDT was notified Pulse 63 01/10/2025 11:04 AM EDT Temperature 36.5 C (97.7 F) 01/10/2025 11:04 AM EDT Respiratory Rate 16 01/10/2025 11:0 4 AM EDT Oxygen Saturation 99% 01/10/2025 11: 04 AM EDT Inhaled Oxygen Concentration - - Weight 81.5 kg (179 lb 10.8 oz) 01/10/2025 11:04 AM EDT Height 172.7 cm (5' 8 ) 09/12/2024 2:31 PM EDT Body Mass Index 27.32 09/12/2024 2:31 PM EDT Plan of Treatment Upcoming Encounters Date Type Department Care Team (Late st Contact Info) Description 03/18/2025 3:30 PM EDT Telemedicine [facility] in clinical affiliation with [address] [place] [phone] April Sanchez DNP [address] [place] [address] [email or web address] Jurgen Avila MD [address] [place] [address] [email or web address] Health Maintenance Due Date Last Done Comments Adult Td,Tdap Booster 1957 LIPID PANEL 1957 HEPATITIS C SCREENING 1975 PNEUMOCOCCAL VACCINES (50+ y ears) (1 of 2 - PCV) 1976 ZOSTER VACCINES (1 of 2) 1976 COLOGUARD 2002 COLONOSCOPY 2002 COLORECTAL CANCER SCREENING 2002 FIT TEST 2002 FOBT 2002 SIGMOIDOSCOPY 2002 VIRTUAL COLONOSCOPY 2002 INFLUENZA VACCINE (#1) 2025 COVID-19 VACCINE ( - 2023-2 5 season) 2025 BLOOD PRESSURE 07/13/2025 01/10/2025 DEPRESSION SCREENING 09/12/2025 09/12/2024 SCREENING FOR DIABETES 01/11/2028 01/10/2025 RSV VACCINE (1 - 1-dose 75+ series) 2032 SMOKING STATUS SCREENING (On ce After 26 Yrs) Completed 09/12/2024 HEPATITIS A VACCINES Aged Out No long er eligible based on patient's age to complete this topic HIB VACCINES Aged Out No longer eligi ble based on patient's age to complete this topic MENINGOCOCCAL VACCINES (ACWY) Aged Out No longer eligible based on patient's age to complete this topic MENINGOCOCCAL VACCINES (B) Aged Out N o longer eligible based on patient's age to complete this topic Medical Devices Not on file Procedures Procedure Name Priority Date/Time Associated Diagnosis Comments TESTOSTERONE, TOTAL Routine 01/10/2025 1 2:14 PM EDT Prostate cancer PSA DIAGNOSTIC (MONITORING) Routine 01/10/2025 12:14 PM EDT Prostate cancer COMPREHENSIVE METABOLIC PANEL Routine 01/10/2025 12:14 PM EDT Prostate cancer CBC AND DIFFERENTIAL Routine 01/10/2025 12:14 PM EDT Prostate cancer from Last 3 Months Results * (ABNORMAL) Comprehensive metabolic panel (01/10/2025 12:14 PM EDT) SODIUM 138 136 - 145 mmol/L [facility] Comment: POTASSIUM 4.2 3.4 - 5.1 mmol/L [facility] Comment: CHLORIDE 102 98 - 107 mmol/L [facility] Comment: CO2 23 22 - 31 mmol/L [facility] Comment: BUN 16 6 - 23 mg/dL [facility] Comment: CREATININE 1.15 0.50 - 1.20 mg/dL [facility] [address] GLUCOSE 102(H) 70 - 100 mg/dL [facility] Comment: ALBUMIN 4.5 3.5 - 5.2 g/dL [facility] Comment: TOTAL PROTEIN 7.6 6.4 - 8.3 g/dL [facility] Comment: CALCIUM 9.6 8.8 - 10.7 mg/dL [facility] Comment: ALKALINE PHOSPHATASE 92 35 - 130 U/L [facility] Comment: TOTAL BILIRUBIN 0.6 0.0 - 1.0 mg/dL [facility] Comment: AST 28 10 - 50 U/L [facility] Comment: ALT 22 10 - 50 U/L [facility] Comment: GLOBULIN 3.1 2.2 - 4.2 g/dL [facility] EGFR 70 >59 mL/min/1.7 3m2 [facility] Comment:Estimated glomerular filtration rate calculated using the CKD-EPI refit equation. ANION GAP 13 7 - 17 mmol/L [facility] [address] Comment: Blood 01/10/2025 12:1 4 PM EDT 01/10/2025 12:21 PM EDT Jurgen Avila MD LAB BLOOD ORDERABLES Final Res ult Performing Organization Address City/[facility]/ZIP Co de Phone Number [facility]. [facility] Room [address] * (ABNORMAL) PSA diagnostic (monitoring) (01/10/2025 12:14 PM EDT) PSA Monitoring 28.10(H) 0.00 - 4.00 ng/mL [facility] [place] [address] Comment: Testing performed on the [employer] Gi[employer]omo Pro system. Values obtained from different assay methods cannot be used interchangeably to monitor patient treatment. Blood 01/10/2025 12:1 4 PM EDT 01/10/2025 12:21 PM EDT Jurgen Avila MD LAB BLOOD ORDERABLES Final Res ult Performing Organization Address City/[facility]/ZIP Co de Phone Number [facility] [address] [facility], [address] [phone] * (ABNORMAL) CBC and differential (01/10/2025 12:14 PM EDT) WBC 5.31 4.00 - 11.00 K/uL [facility] RBC 5.49 4.50 - 5.90 M/uL [facility] HGB 16.2 13.5 - 17.5 g/dL [facility] HCT 49.1 41.0 - 53.0 % [facility] PLT 243 150 - 450 K/uL [facility] MCV 89.4 80.0 - 100.0 fL [facility] MCH 29.5 27.0 - 31.0 pg [facility] MCHC 33.0 32.0 - 36.0 g/dL [facility] RDW 13.2 11.5 - 14.5 % [facility] MPV 10.0 8.4 - 12.0 fL [facility] NRBC 0.00 0.00 /100 WBCs [facility]-[address] [place] [address] ABSOLUTE NRBC 0.00 0.00 K/uL [facility] [place] [address]. DIFF METHOD Auto [facility] NEUTS 41.9(L) 48.0 - 76.0 % [facility] LYMPHS 44.3(H) 18.0 - 41.0 % [facility] MONOS 8.7 4.0 - 11.0 % [facility] EOS 4.1 0.0 - 5.0 % [facility] BASOS 0.8 0.0 - 1.5 % [facility] ABSOLUTE NEUTS 2.23 1.92 - 7.60 K/uL [facility] Comment:1.21-5.39 cells/KL i s the reference range for individuals with the Thomson null phenotype ABSOLUTE LYMPHS 2.35 0.72 - 4.10 K/uL [facility] ABSOLUTE MONOS 0.46 0.16 - 1.10 K/uL [facility] ABSOLUTE EOS 0.22 0.00 - 0.50 K/uL [facility] ABSOLUTE BASOS 0.04 0.00 - 0.15 K/uL [facility] % IMMATURE GRANS 0.2 0.0 - 0.9 % [facility] ABS IMMATURE GRANS 0.01 0.00 - 0.09 K/uL [facility] ABSOLUTE NEUTROPHIL COUNT 2.23 1.92 - 7.60 K/uL [facility] Comment: Automated cell count. Manual ANC may differ if performed. 1.21-5.39 cells/KL is the reference range for individuals with the Thomson null phenotype Blood 01/10/2025 12:1 4 PM EDT 01/10/2025 12:21 PM EDT Jurgen Avila MD LAB BLOOD ORDERABLES Final Res ult [facility] 101 [facility]. Room [address] * Testosterone, total (01/10/2025 12:14 PM EDT) TESTOSTERONE 559 193 - 740 ng/dL [facility] Comment: Blood 01/10/2025 12:1 4 PM EDT 01/10/2025 12:21 PM EDT Jurgen Avila MD LAB BLOOD ORDERABLES Final Res ult Performing Organization Address City/[facility] Co de Phone Number [facility] [place] [address] [place] [address] [phone] from Last 3 Months Insurance MEDIC[place] PART A [place] [id number] [employer] MEDICARE SUPPLEMENT MEDICARE PART A & B [employer] MEDICARE SUPPLEMENT MEDICARE PART A & B [employer] MEDICARE SUPPLEMENT MEDICARE PART A & B [employer] MEDICARE SUPPLEMENT MEDICARE PART A & B [facility] MEDICARE SUPPLEMENT MEDICARE PART A & B [facility] MEDICARE SUPPLEMENT Care Teams Stock Checker Relationship Specialty Start Date End Date Valeriy Allen MD [address] [place] [address] [email or web address] PCP - General Internal Medicine 08/23/24 Easton Chance MD [facility] [place] [address] Urology 08/23/24 Jurgen Avila MD [address] [place] [address] [email or web address] Primary Oncologist Medical Oncology 12/13/24 Additional Source Comments The information contained in this document represents components of the legal health record. It is not the complete legal health record.[facility]
--- OUTSIDE RECORDS SUMMARY | 2025-02-20 15:35 | XMS_ITS | Clinical Summary ---
Author Organization [facility] Address [facility] [place] [address] Care Team Providers Care Reducing Machine Operator Name Role Phone Melinda Clemente Primary Care Provider [phone] Allergies Active Allergy Reactions Criticality Noted Date Comments Morphine Nausea Only Low 01/02/2019 Prednisone Anxiety Low 02/06/2014 Keeps patient wide awake Medications PROAIR HFA 90 mcg/actuation HFA Aerosol Inhaler INHALE 2 PUFFS USING INHALER EVERY 4 HOURS NEEDED 6 6 Active Ascorbic Acid 1,000 mg Tablet, Chewable Take 1,000 mg by mouth daily. Active cholecalciferol, Vitamin D3, 400 unit Capsule Take 400 Units by mouth daily. Active HERBAL DRUGS ORAL Take 1 tablet by mouth daily. Permalung, Unflamed Active multivitamin with minerals Tablet Take 1 tablet by mouth daily. Zinc based Active montelukast (Singulair) 10 mg Tablet Take 10 mg by mouth daily. 0 Active meloxicam (MOBIC) 15 mg TabletIndications:P rimary osteoarthritis of first carpometacarpal joint of left hand Take 1 tablet by mouth daily. 30 tablet 3 0 Active colchicine (Colcrys) 0.6 mg TabletIndications:S train of extensor muscle, fascia and tendon of left little finger at wrist and hand level, initial encounter,Primary osteoarthritis of first carpometacarpal joint of left hand Take 1 tablet by mouth daily. 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 Not on file Not on file Last Filed Vital Signs Vital Sign Reading Time Taken Comments Blood Pressure 141/96 05/25/2019 7:39 PM EST Pulse 82 05/25/2019 7:39 PM EST Temperature 36.6 C (97.9 F) 05/25/2019 6:06 PM EST Respiratory Rate 16 05/25/2019 7:39 PM EST [...] Colorectal Cancer Screening 08/25/2021 Covid-19 Vaccine ( - season) 2025 Influenza (Flu) vaccine (1 o f 1 - Influenza standard series) 02/18/2025 Medical Devices Implanted Type Area Security Guard Device Identifier Shelf Expiration Date Model / Serial / Lot Mesh,3dmax,Lr g,Right,4x6in ([id number]) - [id number] Implanted:Qty : 1 on 06/09/2016 by Santos Borja MD at [facility] IMPLANTS Right: [employer] - 1825 03/17/2021 [id number] / / [id number] Procedures Procedure Name Priority Date/Time Associated Diagnosis Comments LIPID PANEL (REFLEX DIRECT LDL) Routine 06/30/2011 7:14 AM EST from Last 3 Months or Most Recently Relevant to Health Maintenance Results * (ABNORMAL) Lipid Panel (Reflex Direct LDL) (06/30/2011 7:14 AM EST) Cholesterol, Total 238(ExtH) 0 - 199 mg/dL [facility] Triglyceride 113(Exter nal Lab) 0 - 199 mg/dL [facility] HDL Cholesterol 73.4(ExtH ) 27 - 67 mg/dL [facility] LDL Cholesterol 142(Exter nal Lab) [facility] VLDL 22.6(Exte rnal Lab) mg/dL [facility] Cholesterol/HDL Ratio 3.2(ExtL) 3.5 - 5.0 [facility] 06/30/2011 7:14 AM EST us Results Provider Apd Conversion CHEMISTRY ORD ERABLES Final Result [facility] [address] [place] [address] from Last 3 Months or Most Recently Relevant to Health Maintenance Insurance [employer] Advance Directives * Full Code (Latest Code Status on File) Date Activated Date Inactivated Comments 06/09/2016 9:54 AM 06/09/2016 3:47 PM Question Answer Comments Does patient have capacity to make decision: Yes Care Teams Reducing Machine Operator Relationship Specialty Start Date End Date Melinda Clemente PA [address] [place] [phone] PCP - General 11/16/22
--- OUTSIDE RECORDS SUMMARY | 2025-02-20 15:35 | XMS_ITS | Encounter Summary ---
Author Organization [facility] Address [address] [place] [address] Phone Care Team Providers Care Monitor Car Operator Name Role Phone Valeriy Allen MD Primary Care Provider [phone] Easton Chance MD Unavailable [phone] Jurgen Carbone MD Unavailable [phone] Reason for Visit * Reason Onset Date Comments MARGARITA 02/19/2025 Encounter Details Date Type Department Care Team (Late st Contact Info) Description 02/19/2025 Telephone [facility] in clinical affiliation with [facility] [address] [facility] 2nd [place] [address] Kareem Shankar [address] [place] [address] [email or web address] MARGARITA Social History Tobacco Use Types Packs/Day Years Used Date Smoking Tobacco: Never Smokeless Tobacco: Never Alcohol Use Standard Drinks/Week Comments Yes 12 [...] your housing situation today? I have jaylen goldman 01/07/2025 How many times have you move [...] Orientation Straight 08/23/2024 2: 08 PM EST documented as of this encounter Plan of Treatment Upcoming Encounters Date Type Department Care Team (Late st Contact Info) Description 03/18/2025 3:30 PM EDT Telemedicine [facility] in clinical affiliation with [address] [place] [address] April Sanchez DNP [address] [place] [address] [email or web address] Jurgen Carbone MD [address] [place] [address] [email or web address] as of this encounter Visit Diagnoses Not on filedocumented in this encounter Additional Health Concerns Assessment Noted Time PHQ-2 Depression Total Score: 0 09/13/19 2:39 PM EDT documented as of this encounter Care Teams Monitor Car Operator Relationship Specialty Start Date End Date Valeriy Allen MD [address] [place] [phone] PCP - General Internal Medicine 08/23/24 Easton Chance MD [address] [place] [id number] Urology 08/23/24 Jurgen Carbone MD [address] [place] [phone] [email or web address] Primary Oncologist Medical Oncology 12/13/24 documented as of this encounter Additional Source Comments The information contained in this document represents components of the legal health record. It is not the complete legal health record.[facility]
--- OUTSIDE RECORDS SUMMARY | 2025-02-20 15:35 | XMS_ITS | Encounter Summary ---
Author Organization [facility] Address [address] [place] [address] Phone Care Team Providers Care Material Stockkeeper Yard Name Role Phone Valeriy Allen MD Primary Care Provider [phone] Easton Chance MD Unavailable [phone] Jurgen Carbone MD Unavailable [phone] Encounter Details Date Type Department Care Team (Late st Contact Info) Description 02/15/2025 [facility]ation [facility] in clinical affiliation with [address] [place] [address] Eron Manzano, RN [address] [place] [phone] [email or web address] Social History Tobacco Use Types Packs/Day Years [...] PM EST documented as of this encounter Progress Notes * Eron Manzano, RN - 02/15/2025 12:26 PM EDT Labs to be done prior to follow up in February faxed to [facility] in [place] @ [phone]. Confirmed with facility that they will accept orders and will fax results. Patient notified to get labs done at least 3 days before f/u visit. documented in this encounter Plan of Treatment Upcoming Encounters Date Type Department Care Team (Late st Contact Info) Description 03/18/2025 3:30 PM EDT Telemedicine [facility] in clinical affiliation with [address] [place] [phone] April Sanchez DNP [address] [place] [phone] [email or web address] Jurgen Carbone MD [address] [place] [phone] [email or web address], [email or web address] documented as of this encounter Visit Diagnoses Not on filedocumented in this encounter Additional Health Concerns Assessment Noted Time PHQ-2 Depression Total Score: 0 09/13/19 2:39 PM EDT documented as of this encounter Care Teams Material Stockkeeper Yard Relationship Specialty Start Date End Date Valeriy Allen MD [address] [place] [phone] PCP - General Internal Medicine 08/23/24 Easton Chance MD [address] [place] [phone] Urology 08/23/24 Jurgen Carbone MD [address] [place] [phone] [email or web address] Primary Oncologist Medical Oncology 12/13/24 documented as of this encounter Additional Source Comments The information contained in this document represents components of the legal health record. It is not the complete legal health record.[facility]
--- OUTSIDE RECORDS SUMMARY | 2025-02-20 15:35 | XMS_ITS | Encounter Summary ---
Author Organization [facility] Address [address] [place] [phone] Phone Care Team Providers Care Industry Operations Investigator Name Role Phone Valeriy Allen MD Primary Care Provider [phone] Easton Chance MD Unavailable Jurgen Carbone MD Unavailable [phone] Reason for Visit * Reason Onset Date Comments Appointment 02/14/2025 Encounter Details Date Type Department Care Team (Late st Contact Info) Description 02/14/2025 Telephone [facility] in clinical affiliation with [address] [place] [address] Emelia Ruff [address] [place] [phone] [email or web address] Appointment Social History Tobacco Use Types Packs/Day Years [...] Info) Description 03/18/2025 3:30 PM EDT Telemedicine [facility] in clinical affiliation with [address] [place] [address] April Sanchez, DNP [address] [place] [address] [email or web address] Jurgen Carbone MD [address] [place] [address] [email or web address] documented as of this encounter Visit Diagnoses Not on filedocumented in this encounter Additional Health Concerns Assessment Noted Time PHQ-2 Depression Total Score: 0 09/13/19 2:39 PM EDT documented as of this encounter Care Teams Industry Operations Investigator Relationship Specialty Start Date End Date Valeriy Allen MD [address] [place] [phone] [email or web address] PCP - General Internal Medicine 08/23/24 Easton Chance MD [address] [place] [address] Urology 08/23/24 Jurgen Carbone MD [address] [place] [phone] [email or web address] Primary Oncologist Medical Oncology 12/13/24 documented as of this encounter Additional Source Comments The information contained in this document represents components of the legal health record. It is not the complete legal health record.[facility]
--- OUTSIDE RECORDS SUMMARY | 2025-02-20 15:35 | XMS_ITS | Encounter Summary ---
Author Organization [facility] Address [address] [place] [address] Phone Care Team Providers Care Dimension Specification Inspector Name Role Phone Valeriy Allen MD Primary Care Provider [phone] Easton Chance MD Unavailable [phone] Jurgen Carbone MD Unavailable [phone] Encounter Details Date Type Department Care Team (Late st Contact Info) Description 02/11/2025 Orders Only [facility] in clinical affiliation with [address] [place] [phone] [address] [email or web address] Social History Tobacco Use Types Packs/Day Years [...] Info) Description 03/18/2025 3:30 PM EDT Telemedicine [facility] in clinical affiliation with [address] [place] [address] April Sanchez DNP [address] [place] [address] [email or web address] Jurgen Carbone MD [address] [place] [address] [email or web address] documented as of this encounter Visit Diagnoses Not on filedocumented in this encounter Additional Health Concerns Assessment Noted Time PHQ-2 Depression Total Score: 0 09/13/19 25 2:39 PM EDT documented as of this encounter Care Teams Dimension Specification Inspector Relationship Specialty Start Date End Date Valeriy Allen MD [address] [place] [phone] PCP - General Internal Medicine 08/23/24 Easton Chance MD [address] [place] [address] Urology 08/23/24 Jurgen Carbone MD [address] [place] [phone] [email or web address] Primary Oncologist Medical Oncology 12/13/24 documented as of this encounter Additional Source Comments The information contained in this document represents components of the legal health record. It is not the complete legal health record.[facility]
--- OUTSIDE RECORDS SUMMARY | 2025-02-20 15:35 | XMS_ITS | Encounter Summary ---
[place] [address] Care Team Providers Care Motorcycle Repairer Name Role Phone Melinda Clemente Primary Care Provider [phone] Reason for Referral * Consultation (Routine) - Closed Specialty Diagnoses / Procedures Referred By Contafua t Referred To Contact Pulmonology Diagnoses Chronic cough Storm Molina MD Phone: tel: fax: [place] [address] Phone: tel: fax: Referral ID Status Reason Start Date Expiration Date V isits Requested Visits Authorized [id number] Closed Consult, Test & Treat 12/15/2018 12/15/2019 1 1 Encounter Details Date Type Department Care Team (Late st Contact Info) Description 12/15/2018 Community Orders External [phone] Storm Molina MD [address] [place] [address] Chronic cough Social History Tobacco Use Types [...] Cough documented in this encounter Care Teams Motorcycle Repairer Relationship Specialty Start Date End Date Melinda Clemente PA [address] [place] [address] PCP - General 11/16/22 documented as of this encounter
== END 2025-02-20 14:17 | disposition home or self-care (01) ==
LOC: HO.HUSH 13:17
PROVIDERS: Visit Provider Urology
DX: C61 Malignant neoplasm of prostate (principal)
CPT/HCPCS: 99213; G2211